=== PATIENT | female | born 1970 | race Caucasian/White ===

== ENCOUNTER 2020-01-06 09:53 | Outpatient (CLI) | payer BC, SELFPAY ==
--- NOTE | ~2020-01-06 | MM_ITS ---
EXAMINATION: MM screening [facility] BI w gael HISTORY: Screening mammogram TECHNIQUE: Craniocaudal and mediolateral oblique 3-D tomosynthesis images were obtained and synthetic 2-D images were generated. CAD analysis was submitted and interpreted. COMPARISON: No prior mammogram is available for comparison at this institution. BREAST PARENCHYMAL COMPOSITION: There are scattered areas of fibroglandular density. FINDINGS: There is no evidence of suspicious mass, calcification, or architectural distortion to sugg est malignancy in either breast. There has been no suspicious interval change. IMPRESSION: 1. No mammographic evidence of malignancy. 2. Recommend routine screening mammography in one year. BI-RADS Category 1: Negative.. Reviewed, dictated and finalized at location A.
== END 2020-01-06 09:54 | disposition home or self-care (01) ==
LOC: ANHIMG 09:55
PROVIDERS: PCP Internal Medicine; Visit Provider Obstetrics & Gynecology
DX: Z12.31 Encounter for screening mammogram for malignant neoplasm of breast (principal)
CPT/HCPCS: 77063; 77067

== ENCOUNTER → 2020-03-28 07:58 | Outpatient (CLI) | payer BC, SELFPAY ==
--- NOTE | ~2020-03-28 | MR_ITS ---
EXAMINATION: MR shoulder RT wo con DATE: 03/28/2020 08:37 INDICATION: Right shoulder pain TECHNIQUE: Magnetic resonance imaging (MRI) of the right shoulder was performed without intravenous c ontrast. Sequences included axial PD-weighted FS FSE, coronal oblique PD-weighted FS FSE, coronal obl ique T2-weighted FS FSE, sagittal PD-weighted FS FSE, and sagittal T1-weighted SE. COMPARISON: None. FINDINGS: Coracoacromial arch: The acromion undersurface is curved in morphology (type II). The coracoacromial ligament is normal. M oderate acromioclavicular osteoarthritis with primarily cephalad directed marginal osteophytes. Rotator cuff: There is moderate supraspinatus and infraspinatus tendinopathy without discrete tear. There is a glob ular region of low signal intensity extending along the anterior portion of the infraspinatus tendon and into the conjoined portion of the tendon with appearance suggestive of calcific tendinitis. Addit ional 5 x 3 mm region of likely calcific tendinitis at the insertion of the posterior most infraspina tus tendon. The region of likely calcification extends for approximately 2.7 cm in proximal to distal length along the tendon and measures up to 8 mm AP and 6 mm in thickness. Mild subscapularis tendino dawood. The teres minor tendon is normal. Normal rotator cuff muscle bulk and signal. Biceps tendon, glenoid labrum and glenohumeral cartilage: Long head of the biceps tendon is normal. Diffuse mild increased signal throughout the posterior supe rior glenoid labrum consistent with degeneration. Tiny focus of fluid signal consistent with delamina tion at the chondral labral junction at the 9:00 position of the posterior glenoid there is mild part ial thickness cartilage loss along the posterior glenoid with smooth chondral surface. Fluid: Small amount of fluid in the long head biceps tendon sheath which is disproportionate to the physiolo gic amount of fluid in the glenohumeral joint space consistent with mild bicipital tenosynovitis. No loose osteochondral bodies. Very small amount of fluid in the subacromial/subdeltoid bursa consistent with mild bursitis. Bones: Bone alignment is normal. No fracture or pathologic marrow replacing process. IMPRESSION: 1. Moderate supraspinatus and infraspinatus tendinopathy with likely calcific tendinitis along the in fraspinatus tendon. Could consider right shoulder radiographs for confirmation. 2. Mild glenohumeral osteoarthritis with small region of chondral labral delamination at the posterio r glenoid and degeneration along the posterosuperior labrum. 3. Moderate acromioclavicular osteoarthritis. 4. Mild subacromial/subdeltoid bursitis. 5. Mild bicipital tenosynovitis. Reviewed, dictated and finalized at location A. IMPRESSION: 1. Moderate supraspinatus and infraspinatus tendinopathy with likely calcific t endinitis along the infraspinatus tendon. Could consider right shoulder radiogr aphs for confirmation. 2. Mild glenohumeral osteoarthritis with small region of chondral labral [place] at the posterior glenoid and degeneration along the posterosuperior labr um. 3. Moderate acromioclavicular osteoarthritis. 4. Mild subacromial/subdeltoid bursitis. 5. Mild bicipital tenosynovitis.
== END ==
PROVIDERS: PCP Internal Medicine; Visit Provider Nurse Practitioner
DX: M25.511 Pain in right shoulder (principal); S46.011A Strain of muscle(s) and tendon(s) of the rotator cuff of right shoulder, initial encounter; M19.011 Primary osteoarthritis, right shoulder; M75.51 Bursitis of right shoulder; M75.21 Bicipital tendinitis, right shoulder
CPT/HCPCS: 73221

== ENCOUNTER 2021-03-09 15:03 | Outpatient (CLI) | payer BC, SELFPAY ==
--- NOTE | ~2021-03-09 | MM_ITS ---
EXAMINATION: MM screening [facility] BI w gael HISTORY: Screening mammogram TECHNIQUE: Craniocaudal and mediolateral oblique 3-D tomosynthesis images were obtained and synthetic 2-D images were generated. CAD analysis was submitted and interpreted. COMPARISON: 01/06/2020, 10/06/2018, 10/25/2016 BREAST PARENCHYMAL COMPOSITION: The breasts are heterogeneously dense, which may obscure small masses . FINDINGS: There is no evidence of suspicious mass, calcification, or architectural distortion to sugg est malignancy in either breast. There has been no suspicious interval change. IMPRESSION: 1. No mammographic evidence of malignancy. 2. Recommend routine screening mammography in one year. BI-RADS Category 1: Negative Reviewed, dictated and finalized at location A.
== END 2021-03-09 15:04 | disposition home or self-care (01) ==
LOC: ANHIMG 15:04
PROVIDERS: PCP Internal Medicine; Visit Provider Obstetrics & Gynecology
DX: Z12.31 Encounter for screening mammogram for malignant neoplasm of breast (principal)
CPT/HCPCS: 77063; 77067

== ENCOUNTER 2022-03-14 11:33 | Observation (INO) | payer OTHER, SELFPAY ==
[2022-03-14] VITALS (9 sets, daily range): BP systolic 120–148; BP diastolic 47–85; PULSE 71–111; RESP 15–18; TEMP 36.2–36.3; O2SAT 97–100; BMI 35.6
--- NOTE | ~2022-03-14 | XR_ITS ---
XR chest 2V DATE: 03/14/2022 15:43 INDICATION: Near syncope TECHNIQUE: PA and lateral views COMPARISON: 07/01/2008 PA chest FINDINGS: Normal heart size. No hilar or mediastinal enlargement. No pulmonary infiltrate or consolid ation, pleural effusion or pulmonary vascular congestion or pneumothorax. Degenerative disc disease in the lower cervical spine. Mild degenerative spurring of the thoracic spi ne. Status post cholecystectomy. IMPRESSION: No active cardiopulmonary disease Reviewed, dictated and finalized at location B.
--- NOTE | ~2022-03-14 | MR_ITS ---
EXAMINATION: MR brain/brain stem wo/w con DATE: 03/15/2022 08:11 INDICATION: Transient ischemic attack. Presyncope. TECHNIQUE: Magnetic resonance imaging (MRI) of the brain and brainstem was performed without and with 20 mL MultiHance intravenous contrast. COMPARISON: Head CT 03/14/2022 FINDINGS: There is an empty sella. 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 There are scattered areas of nonspecific increased T2-weighted signal intensity in the cerebral white evelyn er, which is within normal limits for the patient's age. There is no intracranial hemorrhage, acute i nfarction, or abnormal intracranial mass lesion. The ventricles are normal in size. There is mild muc osal thickening in the paranasal sinuses. The orbits are normal. The mastoid air cells are normal. IMPRESSION: 1. No acute intracranial pathology. Reviewed, dictated and finalized at location A.
--- NOTE | ~2022-03-14 | CT_ITS ---
EXAMINATION: CT brain wo con DATE: 03/14/2022 13:30 INDICATION: Syncope, lightheadedness, twitching and paresthesias to the tongue TECHNIQUE: Computed tomography (CT) of the head was performed without intravenous contrast. Sagittal and coronal reconstructions were performed. The mA was adjusted according to patient size. Iterative reconstruction technique was employed. The dose-length product was 605.33 mGy-cm. COMPARISON: 12/29/2004 FINDINGS: No acute intracranial hemorrhage, acute infarction or abnormal extra axial fluid collection. Ventricl es are normal and symmetric. There is an empty sella with the pituitary appearing flattening along the caudal aspect of the sella which can be seen with idiopathic intracranial hypertension. No mass/m ass effect. The orbits, paranasal sinuses and mastoid air cells are normal. IMPRESSION: 1. No acute intracranial process. 2. Empty sella which can be seen with idiopathic intracranial hypertension. Reviewed, dictated and finalized at location A.
--- NOTE | ~2022-03-14 | US_ITS ---
EXAMINATION: US carotid duplex BI DATE: 03/15/2022 11:58 INDICATION: Presyncope. Transient ischemic attack. TECHNIQUE: Grayscale, color Doppler, and pulsed Doppler images of the cervical carotid arteries were obtained. The degree of vessel stenosis is placed in one of the following categories: normal, <50%, 5 0-69%, >=70% but less than near-occlusion, near-occlusion, or total occlusion. Note that percent sten osis relative to normal distal artery lumen diameter is indirectly measured from velocity measurement s as described by Carlos, et al. Radiology 2003; 229:340-346. COMPARISON: None. FINDINGS: RIGHT: The right common carotid artery (CCA) peak systolic velocity (PSV) is 90 cm/s. The right internal car otid artery (ICA) PSV is 122 cm/s. The right ICA end-diastolic velocity (EDV) is 39 cm/s. The right I CA/CCA PSV ratio is 1.4. Grayscale and color Doppler images yield an estimate of <50% diameter reduct ion from plaque in the ICA. There is antegrade flow in the right vertebral artery. LEFT: The left CCA PSV is 82 cm/s. The left ICA PSV is 115 cm/s. The left ICA EDV is 43 cm/s. The left ICA/ CCA PSV ratio is 1.4. Grayscale and color Doppler images yield an estimate of <50% diameter reduction from plaque in the ICA. There is antegrade flow in the left vertebral artery. IMPRESSION: 1. <50% stenosis in the right internal carotid artery. 2. <50% stenosis in the left internal carotid artery. Reviewed, dictated and finalized at location A.
--- NOTE | 2022-03-14 12:03 | ECG_ITS ---
Measurements Intervals [place] Rate: 77 P: 68 FL: 136 QRS: 44 QRSD: 91 T: 56 QT: 360 QTc: 410 Interpretive Statements SINUS RHYTHM POSSIBLE LEFT ATRIAL ENLARGEMENT BASELINE ARTIFACT- I, II, III, AVR, AVL, AVF, V1 BORDERLINE ECG NO PREVIOUS ECG AVAILABLE FOR COMPARISON Electronically Signed On 03-14-2022 12:47:13 CDT by Maximino Bryan D.O.
[2022-03-14 12:42] LABS: Basophils Absolute Auto 0.1 K/mm3 (0.0-0.1); Basophils Percent Auto 0.7 % (0.2-1.2); Eosinophils Absolute Auto 0.2 K/mm3 (0-0.3); Hematocrit 43.4 % (37.0-47.0); Hemoglobin 14.2 g/dL (12.0-15.0); Immature Granulocyte Absolute 0.03 K/mm3 (0.00-0.031); Immature Granulocyte Percent A 0.3 % (0-0.5); Lymphocytes Absolute Auto 2.05 K/mm3 (0.9-3.2); Lymphocytes Percent Auto 21.5 % (18.3-44.2); Mean Corpuscular HGB Conc 32.7 g/dl (32-36); Mean Corpuscular Hemoglobin 29.4 pg (26-34); Mean Corpuscular Volume 89.9 fl (80-100); Mean Platelet Volume 8.9 fl (7.4-10.4); Monocytes Absolute Auto 0.7 K/mm3 (0.1-0.6); Monocytes Percent Auto 7.3 % (2.6-8.5); Neutrophils Absolute Auto 6.5 K/mm3 (1.3-6.7); Neutrophils Percent Auto 68.2 % (45.5-73.1); Platelet Count Result 303 k/mm3 (150-375); Red Blood Count 4.83 M/mm3 (4.2-5.4); Red Cell Distribution Width 12.6 % (11.5-14.5); White Blood Count 9.5 K/mm3 (4.5-10.0)
[2022-03-14 12:54] LABS: Alanine Aminotransferase 19 U/L (6-35); Albumin Level 4.7 g/dL (3.5-5.1); Alkaline Phosphatase 107 U/L (38-126); Anion Gap 12 mmol/L (8-16); Aspartate Amino Transferase 23 U/L (14-36); Bilirubin,Total 0.5 mg/dL (0.2-1.3); Blood Urea Nitrogen 12 mg/dL (7-17); Calcium 9.8 mg/dL (8.4-10.2); Carbon Dioxide 27 mmol/L (22-30); Chloride 99 mmol/L (98-107); Estimated CRCL calculation 114 ml/min; Estimated Glomerular Filt Rate > 60; Glucose 99 mg/dL (65-110); Potassium 4.3 mmol/L (3.4-5.0); Sodium 138 mmol/L (137-145)
--- NOTE | 2022-03-14 13:25 | ED.GENADULT ---
HPI - General Adult General Chief complaint: Unspecified Stated complaint: dizziness, nausea, tongue feels weird Time Seen by Provider: 03/14/22 12:51 History of Present Illness HPI narrative: 51-year-old female with history of aortic valve stenosis and bicuspid aortic valve presenting the emergency department for evaluation of near syncopal episode. Patient states last night she was sitting and resting when she had onset of lightheadedness last night. Patient states he also felt like her soft palate and tongue felt strangely. Patient states while she was at work she felt like she was going to pass out. This was short lasting but occurred 3 times while resting at work. Patient has no prior of heart attack but does have the history of aortic valve stenosis. Patient has had previous follow-up for Dr. Yao. Related Data Home Medications Medication Instructions Recorded Confirmed estradiol 1 mg tablet 1 mg PO DAILY 04/04/21 03/14/22 cetirizine 10 mg tablet 10 mg PO DAILY PRN Allergy Symptoms 07/02/21 03/14/22 [id number] 45 mg-folic See Rx Instructions .Route .COMPLEX 07/02/21 03/14/22 acid 800 mcg-vit K 120 mcg capsule (Bariatric Multivitamins) Zinc See Rx Instructions .Route .COMPLEX 11/07/21 03/14/22 calcium citrate 250 mg PO DAILY 11/07/21 03/14/22 Allergies Allergy/AdvReac Type Severity Reaction Status Date / Time No Known Allergies Allergy Verified 03/14/22 17:34 Review of Systems Review of Systems: CONSTITUTIONAL: Denies fever, chills, or sweats. EYES: Denies visual changes, redness, or discharge. ENT: Denies rhinorrhea, congestion, sore throat, or otalgia. CARDIOVASCULAR: See HPI RESPIRATORY: Denies cough or dyspnea. GASTROINTESTINAL: Denies abdominal pain, nausea, vomiting, or diarrhea. GENITOURINARY: Denies dysuria or hematuria. SKIN: Denies rash or itching. MUSCULOSKELETAL: Denies back pain, joint pain, or myalgia. NEUROLOGIC: Denies headache, numbness, or weakness. See HPI [facility] Past Medical History Medical History Acquired hypothyroidism Acromioclavicular joint arthritis Acute non-recurrent sinusitis Allergies Anxiety Calcific tendonitis of right shoulder Chicken pox Chronic headaches Depression Diarrhea Ear ache Eczema Elevated blood pressure reading GERD (gastroesophageal reflux disease) Heart murmur History of adverse reaction to anesthesia Hypothyroidism IBS (irritable bowel syndrome) Irritable bowel syndrome with diarrhea Left foot pain Migraine PCOS (polycystic ovarian syndrome) Seasonal allergies Shoulder impingement syndrome Ulcerative colitis Vision changes Surgical History Surgical History H/O bariatric surgery (~2012) H/O: hysterectomy (~2004) Hx of cholecystectomy (~2002) Hx of dilation and curettage (~1999) Hx of laparoscopy Hx of tonsillectomy (~1986) Family History Family History Grandparent Family history of osteoporosis Family history of chronic obstructive pulmonary disease Family history of congestive heart failure Mother Family history of osteoporosis Family history of hypothyroidism Sibling Hypertension Father Family history of elevated blood lipids Other Arthritis Cerebrovascular accident Heart disease Malignant neoplasm Social History Social History Social History: Patient drinks 1 cup of coffee per day. 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 HE
[2022-03-14 15:02] LABS: Magnesium 2.2 mg/dL (1.6-2.3)
--- NOTE | 2022-03-14 17:55 | PC.NURSE ---
This patient, Sanjana Carlos, was admitted to 3 [facility] Surg Room 319-01. Patient/family oriented to hospital policies and general routines including ID bracelet, bed and alarms, visiting hours, pain management, procedures, bathroom and other care routines, personal items, smoking policy, room service/diet, and visiting hours. Information on how to activate the Rapid Response Team has been discussed. Patient/Family are encouraged to report perceived risks to care and to ask questions if they do not understand what they are told or what they should do.
--- NOTE | 2022-03-14 22:03 | PM.IMHP ---
H&P: HPI History of Present Illness Date/Time: 03/14/22 22:03 Chief Complaint: Dizziness nausea and numbness and tingling to her tongue. Narrative: This is a 51-year-old female patient who has a history of aortic valve stenosis and bicuspid aortic valve stenosis. The patient came into the emergency room for complaints of near syncopal episode. The patient stated that she was at her air conditioned job today when she felt nauseated and lightheaded. She stated that her soft palate and tongue felt like they were numb and tingling. The patient is unsure of any COVID exposure. She has been vaccinated. The patient stated that she also has some numbness and tingling to both of her feet. Patient has had no prior myocardial infarction and gets an echo every year for her valve stenosis. The patient stated that there were 3 episodes at rest today when she felt like she was having near syncopal episodes. Labs are unremarkable. Chest x-ray shows no acute cardiopulmonary disease. Head CT was read as the following1. No acute intracranial process. 2. Empty sella which can be seen with idiopathic intracranial hypertension. The patient is being admitted to observation status on the date of service of 03/14/2022. Review of Systems Review of Systems: She HPI All systems reviewed & are unremarkable except as noted in HPI and below Constitutional: Constitutional: Reports as per HPI and Reports no additional constitutional complaints Eyes: Eyes: Reports as per HPI and Reports no additional eye complaints ENT: Reports system reviewed and no additional complaints, except as documented and Reports Normal hearing present Cardiovascular: Cardiovascular: Reports no additional cardiovascular complaints Respiratory: Respiratory: Reports no additional respiratory complaints and Reports no additional respiratory complaints Gastrointestinal: Gastrointestinal: Reports as per HPI and Reports no additional gastrointestinal complaints Musculoskeletal: Musculoskeletal: Reports no additional musculoskeletal complaints Integumentary/Breasts: Skin/Breast: Reports system reviewed and no additional complaints, except as docu and Reports as per HPI Neurologic: Reports system reviewed and no additional complaints, except as documented, Reports as per HPI and Reports Normal hearing present Psychiatric: Psychiatric: Reports no additional psychiatric complaints and Reports as per HPI Endocrine: Endocrine: Reports no additional endocrine complaints Hematologic/Lymphatic: Hematologic/Lymphatic: Reports no additional hematologic/lymphatic complaints Allergic/Immunologic: Allergic/Immunologic: Reports no additional allergic/immunologic complaints PMFSH Past Medical History Medical History Acquired hypothyroidism Acromioclavicular joint arthritis Acute non-recurrent sinusitis Allergies Anxiety Bronchitis Calcific tendonitis of right shoulder Chicken pox Chronic headaches Colon cancer screening Depression Diarrhea Ear ache Eczema Elevated blood pressure reading GERD (gastroesophageal reflux disease) Heart murmur History of adverse reaction to anesthesia Hypothyroidism IBS (irritable bowel syndrome) Irritable bowel syndrome with diarrhea Left foot pain Migraine PCOS (polycystic ovarian syndrome) Right shoulder pain Screening for endocrine disorder Screening for lipid disorders Seasonal allergies Shoulder impingement syndrome Shoulder pain Vision changes Surgical History Surgical History H/O bariatric surgery (~2012) H/O: hysterectomy (~2004) Hx of cholecystectomy (~2002) Hx of dilation and curettage (~1999) Hx of laparoscopy Hx of tonsillectomy (~1986) Family History Family History Grandparent Family history of osteoporosis Family history of chronic obstructive pulmonary disease Family
[2022-03-15] VITALS (7 sets, daily range): BP systolic 120–133; BP diastolic 65–69; PULSE 67–87; RESP 16–18; TEMP 36.6–37.2; O2SAT 96–99
--- NOTE | 2022-03-15 | ECHO_ITS ---
Patient Info Name: Sanjana Carlos Age: 51 years : 1970 Gender: Female Ht: 66 in Wt: 220 lbs BSA: 2.20 m2 HR: 79 bpm BP: 120 / 65 mmHg Heart Rhythm: Sinus Rhythm Exam Date: 03/15/2022 9:14 AM Exam Location: [facility] Patient Status: Inpatient Admit Date: 03/14/2022 Staff Ordering Physician: Amy Schuster NP Chemical Engineering Professor: Nicanor Solares RDCS, RT Attending Provider: Roxana Cash DO Referring Physician: Mariely LEE; Exam Type: CA echo dop bubble study w con Study Info Indications R42 - Dizziness and giddiness Complete two-dimentional, color flow and Doppler transthoracic echocardiogram is performed with agitated saline and with contrast to opacify the left ventricle and to improve the delineation of the left ventricle endocardial borders. Summary 1. Left ventricular chamber dimension is normal. 2. Left ventricular systolic function is normal, estimated at 60-65%. 3. The left ventricular diastolic function is grade I diastolic dysfunction. 4. Mild aortic valve stenosis, suspect bicuspid valve. Left Ventricle Left ventricular chamber dimension is normal. Left ventricular systolic function is normal, estimated at 60-65%. The left ventricular diastolic function is grade I diastolic dysfunction. Right Ventricle Right ventricular chamber dimension is normal. Left Atria Left atrial chamber dimension is normal. Right Atria Right atrial chamber dimension is normal. Aortic Valve The aortic valve is bicuspid. There is mild aortic valve stenosis with a peak velocity of 192 cm/s, mean gradient of 8 mmHg, and aortic valve area of 2.0 cm2. There is no aortic valve regurgitation. Pulmonic Valve The pulmonic valve is not well visualized. Mitral Valve The mitral valve has normal leaflets. Tricuspid Valve The tricuspid valve leaflets are normal. Pericardium/Pleural The pericardium appears normal. Aorta The aortic root size at the sinus of Valsalva is normal. Left Ventricular Outflow Tract Name Value Normal LVOT 2D LVOT Diameter 2.0 cm LVOT Doppler LVOT Peak Gradient 5 mmHg LVOT Mean Gradient 2 mmHg LVOT VTI 19 cm LVOT VTI/AV VTI Ratio 0.6 LVOT Stroke Volume 63 ml LVOT CO 5.9 l/min LVOT CI 2.7 l/min/m2 Mitral Valve Name Value Normal MV Doppler MV Decel Craven 292 cm/s2 MV PHT 59 ms MV Area (PHT) 3.8 cm2 4.0-5.0 MV Diastolic Function MV E Peak Velocity 59 cm/s MV A Peak Velocity 91 cm/s
[2022-03-15] MEDS: LEVOTHYROXINE SODIUM 125 MCG TABLET PO (05:35)
[2022-03-15 06:23] LABS: SARS-CoV-2 RNA PCR Negative
[2022-03-15 06:45] LABS: Basophils Absolute Auto 0.1 K/mm3 (0.0-0.1); Eosinophils Absolute Auto 0.3 K/mm3 (0-0.3); Eosinophils Percent Auto 4.5 % (0-4.4); Hematocrit 40.5 % (37.0-47.0); Hemoglobin 13.3 g/dL (12.0-15.0); Immature Granulocyte Absolute 0.02 K/mm3 (0.00-0.031); Immature Granulocyte Percent A 0.3 % (0-0.5); Lymphocytes Absolute Auto 1.85 K/mm3 (0.9-3.2); Lymphocytes Percent Auto 25.2 % (18.3-44.2); Mean Corpuscular HGB Conc 32.8 g/dl (32-36); Mean Corpuscular Hemoglobin 29.4 pg (26-34); Mean Corpuscular Volume 89.6 fl (80-100); Mean Platelet Volume 8.8 fl (7.4-10.4); Monocytes Absolute Auto 0.7 K/mm3 (0.1-0.6); Monocytes Percent Auto 10.1 % (2.6-8.5); Neutrophils Absolute Auto 4.3 K/mm3 (1.3-6.7); Neutrophils Percent Auto 58.9 % (45.5-73.1); Platelet Count Result 266 k/mm3 (150-375); Red Blood Count 4.52 M/mm3 (4.2-5.4); Red Cell Distribution Width 12.7 % (11.5-14.5); White Blood Count 7.3 K/mm3 (4.5-10.0)
[2022-03-15 07:01] LABS: Lactic Acid Reflex 1.6 mmol/L (0.7-2.0)
[2022-03-15 07:06] LABS: Alanine Aminotransferase 17 U/L (6-35); Alkaline Phosphatase 86 U/L (38-126); Anion Gap 8 mmol/L (8-16); Aspartate Amino Transferase 26 U/L (14-36); Bilirubin,Total 0.5 mg/dL (0.2-1.3); Blood Urea Nitrogen 13 mg/dL (7-17); Calcium 8.7 mg/dL (8.4-10.2); Carbon Dioxide 25 mmol/L (22-30); Chloride 103 mmol/L (98-107); Estimated CRCL calculation 114 ml/min; Estimated Glomerular Filt Rate > 60; Glucose 99 mg/dL (65-110); Potassium 3.9 mmol/L (3.4-5.0); Sodium 136 mmol/L (137-145)
[2022-03-15 08:09] LABS: Folic Acid > 20.0 ng/mL (2.76->20)
--- NOTE | 2022-03-15 08:19 | PM.IMPN ---
Progress Note: A&P Assessment and Plan (1) Near syncope: Code(s): R55 - Syncope and collapse Status: Acute Assessment and Plan: Echo pending Follow-up cardiology consultation, pending (2) Brain TIA: Code(s): G45.9 - Transient cerebral ischemic attack, unspecified Status: Acute Assessment and Plan: Appreciate neurology consultation CTA head and neck was echo pending he (3) Dizziness: Code(s): R42 - Dizziness and giddiness Status: Acute Assessment and Plan: Muscle relaxer and spironolactone both being held (4) Depression: Code(s): F32.A - Depression, unspecified Status: Acute Assessment and Plan: Continue Effexor (5) H/O bariatric surgery: Onset Date: ~2012 Code(s): Z98.84 - Bariatric surgery status Status: Acute Assessment and Plan: Continue home supplements (6) Anxiety: Code(s): F41.9 - Anxiety disorder, unspecified Status: Acute Assessment and Plan: Continue Effexor (7) Hypothyroidism: Qualifiers: Hypothyroidism type: unspecified Qualified Code(s): E03.9 - Hypothyroidism, unspecified Code(s): E03.9 - Hypothyroidism, unspecified Status: Acute Assessment and Plan: Continue home levothyroxine, TSH within normal limits (8) IBS (irritable bowel syndrome): Code(s): K58.9 - Irritable bowel syndrome without diarrhea Status: Acute Assessment and Plan: Stable Plan DVT prophylaxis with SCDs GI prophylaxis not indicated Code status full code Subjective Date/time seen: 03/15/22 08:19 Interval history: No overnight events noted. No chest pain or shortness of breath. No nausea, vomiting or diarrhea. No fevers or chills. Review of Systems Review of Systems: 12 point review of systems was assessed and was negative except as noted in the HPI Exam Narrative: General: No acute distress, alert and oriented per baseline HEENT: Atraumatic, normocephalic, mucous membranes moist CV: Regular rate and rhythm, S1, S2 Lungs: Clear to auscultation bilaterally, no rales or crackles noted, no wheezes, good air entry Abdomen: Soft, nontender, nondistended Extremities: Normal to inspection Skin: No rashes noted, no lesions or wounds seen Psych: Euthymic, normal affect Objective Data Vital Signs Vital Signs: Vital Signs - 24 hr 03/14/22 12:00 03/14/22 12:59 03/14/22 13:00 Temperature 97.3 F L Pulse Rate 79 74 Respiratory Rate 18 15 Blood Pressure 148/71 H Pulse Oximetry 99 97 100 Oxygen Delivery Room Air 03/14/22 13:01 03/14/22 18:05 03/14/22 18:00 Temperature 97.2 F L Pulse Rate 71 74 Respiratory Rate 17 16 Blood Pressure 132/85 144/70 H Pulse Oximetry 100 98 Oxygen Delivery Room Air 03/14/22 20:00 03/14/22 22:02 03/14/22 22:02 Temperature 97.3 F L Pulse Rate 111 H 81 Respiratory Rate 18 Blood Pressure 120/47 L 120/47 L Pulse Oximetry 97 Oxygen Delivery 03/14/22 22:06 03/14/22 22:08 03/15/22 00:00 Temperature Pulse Rate 75 Respiratory Rate Blood Pressure 142/74 H 134/70 Pulse Oximetry Oxygen Delivery 03/15/22 04:00 03/15/22 06:00 Temperature 99 F Pulse Rate 67 72 Respiratory Rate 16 Blood Pressure 120/65 Pulse Oximetry 99 Oxygen Delivery Intake/Output Intake/Output: Intake & Output 03/12/22 03/13/22 03/14/22 03/15/22 23:59 23:59 23:59 23:59 Intake Total 120 Balance 120 Meds/Results Medications: Active Medications Generic Name Dose Route Start Last Admin Trade Name Alexandroq PRN Reason Stop Dose Admin Estradiol 1 mg 03/15/22 09:00 Estradiol 1 Mg Tablet PO DAILY [facility] Levothyroxine Sodium 125 mcg 03/15/22 06:30 03/15/22 05:35 Levothyroxine Sodium 125 Mcg Tablet PO 125 mcg DAILY@0630 [facility] Administration Meclizine HCl 25 mg 03/15/22 09:00 Meclizine Hcl 25 Mg Tablet PO QAM [facility] Miscellaneous In
[2022-03-15] MEDS: PERFLUTREN LIPID MICROSPHERES 1.5 ML VIAL DILUTED TO 10 ML TOTAL VOLUME IV PUSH (09:33)
--- NOTE | 2022-03-15 09:33 | IVDEFINITY ---
Prior to administration of IV Definity the patient was educated on the risks and benefits of the imaging enhancing agent including potential adverse side effects. The patient verbalized understanding. Allergies were verified. No exclusion criteria were identified and at least one of the following inclusion criteria were met: 1) physician request, 2) patient technically difficult to image (per the [place] [employer] guidelines of two or more segments not discernable within the apical view), or 3) questionable left ventricular function. ?
[2022-03-15] MEDS: PANTOPRAZOLE 40 MG TABLET PO (09:54)
[2022-03-15] MEDS: MECLIZINE HCL 25 MG TABLET PO (09:54)
[2022-03-15] MEDS: VENLAFAXINE HCL XR 75 MG CAP.ER.24H 150 MG PO (09:54)
[2022-03-15] MEDS: estradioL 1 MG TABLET PO (09:54)
--- NOTE | 2022-03-15 10:33 | WPDNEURCNPN ---
Assessment and Plan Assessment and plan (1) Near syncope: Code(s): R55 - Syncope and collapse Status: Acute Assessment and Plan: Sanjana Carlos is a 51 year old female with a history of aortic valve stenosis, hypothyroidism, anxiety who presented yesterday due to multiple presyncopal episodes. MRI brain negative for stroke. Vessel imaging pending -- need to rule out carotid and vertebrobasilar disease. Could be orthostatic hypotension vs vasovagal vs cardiogenic. - Recommend CTA head and neck and surface echo Consult date: 03/15/22 Reason for consult: Presyncopal episodes HPI: Sanjana Carlos is a 51 year old female with a history of aortic valve stenosis, hypothyroidism, anxiety who presented yesterday due to multiple episodes of lightheadedness. She had sudden lightheadedness while she was sitting down. She does not feel that there is a positional component to her lightheadedness. She denies any heart racing, chest pain, or palpitations. She also felt a strange sensation in her soft palate and tongue. While she was at work she felt like she was going to faint. In total she had three episodes where she felt lightheaded. She did not loose consciousness. She came to [facility] where she had a CT head which was negative. EKG showed sinus rhythm. Basic labs were unremarkable. She had an MRI brain this morning that was normal. She feels back to her baseline. She denies any headache, vision changes, bulbar issues, speech issues, change in tongue sensation, focal weakness or numbness. Patient does endorse a lot of stress in her personal life lately. Her home medications include Effexor, Flexeril, spironolactone, estradiol. Review of Systems Constitutional: Constitutional: Reports no additional constitutional complaints Eyes: Eyes: Reports no additional eye complaints ENT: Reports Normal hearing present Cardiovascular: Cardiovascular: Reports no additional cardiovascular complaints Respiratory: Respiratory: Reports no additional respiratory complaints Gastrointestinal: Gastrointestinal: Reports no additional gastrointestinal complaints Genitourinary: Genitourinary: Reports no additional female genitourinary complaints Musculoskeletal: Musculoskeletal: Reports no additional musculoskeletal complaints Integumentary/Breasts: Skin/Breast: Reports system reviewed and no additional complaints, except as docu Neurologic: Reports as per HPI Psychiatric: Psychiatric: Reports anxiety PMFSH Past Medical History Medical History Acquired hypothyroidism Acromioclavicular joint arthritis Acute non-recurrent sinusitis Allergies Anxiety Bronchitis Calcific tendonitis of right shoulder Chicken pox Chronic headaches Colon cancer screening Depression Diarrhea Ear ache Eczema Elevated blood pressure reading GERD (gastroesophageal reflux disease) Heart murmur History of adverse reaction to anesthesia Hypothyroidism IBS (irritable bowel syndrome) Irritable bowel syndrome with diarrhea Left foot pain Migraine PCOS (polycystic ovarian syndrome) Right shoulder pain Screening for endocrine disorder Screening for lipid disorders Seasonal allergies Shoulder impingement syndrome Shoulder pain Vision changes Surgical History Surgical History H/O bariatric surgery (~2012) H/O: hysterectomy (~2004) Hx of cholecystectomy (~2002) Hx of dilation and curettage (~1999) Hx of laparoscopy Hx of tonsillectomy (~1986) Family History Family History Grandparent Family history of osteoporosis Family history of chronic obstructive pulmonary disease Family history of congestive heart failure Mother Family history of osteoporosis Family history of hypothyroidism Sibling Hypertension Father Family history of elevated blood lipids Other Arthritis Cerebrovascular accid
--- NOTE | 2022-03-15 15:13 | PM.CNCAR ---
Assessment and Plan Assessment and plan (1) Near syncope: Code(s): R55 - Syncope and collapse Status: Acute Plan This is a 51-year-old lady who has likely bicuspid aortic valve and a very mild stenosis on physical exam and by echo. It is highly unlikely therefore that her aortic valve disease has anything to do with yesterday's symptomatology. Follow-up in our office is already arranged as mentioned above with Dr. Voss. I do not think she needs any additional cardiac workup at this time Bossman Craig MD [facility] History of Present Illness History of Present Illness Consult date/time: 03/15/22 15:13 Reason For Visit: near syncope Narrative: This is a 51-year-old woman who is unknown to me prior to this consultation. I am seeing her at the request of the hospitalist because of an episode of near syncope that she experienced yesterday while she was at work. 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 She did not lose consciousness at that was associated with a sense of some nausea but no other cardiac symptomatology. She has never had a yael syncopal episode. She does not report any symptoms that are going on with exertion or activity she does not specifically experience any exertional chest pain shortness of breath. She feels well at this time and denies any complaints. She was brought to the emergency room at the wrist insistence of 1 of her family members because she is known to have some aortic valve disease and follows with my partner, Dr. Yao. The patient follows with my partner because of aortic valve stenosis. She has been seen for several years in the office and carries the diagnosis of suspected bicuspid aortic valve very mild stenosis. She has had no symptoms of this and has been followed annually in the office. As it happens her annual appointment is due next month. An echocardiogram was ordered in this hospital by the hospitalists which is dictated separately. She has normal left ventricular systolic function and still very mild aortic still stenosis. Calculated valve area is 2.0 cm2 with a modest transvalvular gradient. The patient is obese and so the technical quality of the images is certainly not ideal but I would agree with the comment that this is the likely or at least suspicious for a bicuspid valve. Aortic root dimension is normal. There is no aortic regurgitation. Review of Systems Constitutional: Constitutional: Reports no additional constitutional complaints Eyes: Eyes: Reports no additional eye complaints ENT: Reports system reviewed and no additional complaints, except as documented Cardiovascular: Cardiovascular: Reports as per HPI Respiratory: Respiratory: Reports no additional respiratory complaints Gastrointestinal: Gastrointestinal: Reports no additional gastrointestinal complaints Musculoskeletal: Musculoskeletal: Reports no additional musculoskeletal complaints Integumentary/Breasts: Skin/Breast: Reports system reviewed and no additional complaints, except as docu Neurologic: Reports as per HPI Endocrine: Endocrine: Reports no additional endocrine complaints Hematologic/Lymphatic: Hematologic/Lymphatic: Reports no additional hematologic/lymphatic complaints Allergic/Immunologic: Allergic/Immunologic: Reports no additional allergic/immunologic complaints PMFSH Past Medical History Medical History Acquired hypothyroidism Acromioclavicular joint arthritis Acute non-recurrent sinusitis Allergies Anxiety Bronchitis Calcific tendonitis of right shoulder Chicken pox Chronic headaches Colon cancer screening Depression Diarrhea Ear ache Eczema Elevated blood pressure reading GERD (gastroesophageal reflux disease) Heart murmur History of adverse r
[2022-03-15] MEDS: MULTIVITAMINS /C LUTEIN (CENTRUM SILVER) TABLET *BKC 1 TAB BY MOUTH (16:55)
--- NOTE | 2022-03-15 17:07 | PC.NURSE ---
Called Dr. Cash to question discharge per patient request. Read cardiology consultation report to MD. Verbal discharge orders received.
--- NOTE | 2022-03-16 07:29 | PM.DS ---
DS: Admitting Diagnosis Discharge Date 03/15/22 Admitting Diagnosis Pre syncopal episodes DS: Discharge Diagnosis Discharge Diagnosis (1) Near syncope: Code(s): R55 - Syncope and collapse Status: Acute Assessment and Plan: Echo pending Follow-up cardiology consultation, pending (2) Brain TIA: Code(s): G45.9 - Transient cerebral ischemic attack, unspecified Status: Acute Assessment and Plan: Appreciate neurology consultation CTA head and neck was echo pending he (3) Dizziness: Code(s): R42 - Dizziness and giddiness Status: Acute Assessment and Plan: Muscle relaxer and spironolactone both being held (4) Depression: Code(s): F32.A - Depression, unspecified Status: Acute Assessment and Plan: Continue Effexor (5) H/O bariatric surgery: Onset Date: Code(s): Z98.84 - Bariatric surgery status Status: Acute Assessment and Plan: Continue home supplements (6) Anxiety: Code(s): F41.9 - Anxiety disorder, unspecified Status: Acute Assessment and Plan: Continue Effexor (7) Hypothyroidism: Qualifiers: Hypothyroidism type: unspecified Qualified Code(s): E03.9 - Hypothyroidism, unspecified Code(s): E03.9 - Hypothyroidism, unspecified Status: Acute Assessment and Plan: Continue home levothyroxine, TSH within normal limits (8) IBS (irritable bowel syndrome): Code(s): K58.9 - Irritable bowel syndrome without diarrhea Status: Acute Assessment and Plan: Stable Plan DVT prophylaxis with SCDs GI prophylaxis not indicated Code status full code DS: Summary Hospital Course Hospital Course: 51-year-old female patient who has a history of aortic valve stenosis and bicuspid aortic valve stenosis.? The patient came into the emergency room for complaints of near syncopal episode.? The patient stated that she was at her air conditioned job today when she felt nauseated and lightheaded.? She stated that her soft palate and tongue felt like they were numb and tingling.? The patient is unsure of any COVID exposure.? She has been vaccinated.? The patient stated that she also has some numbness and tingling to both of her feet.? Patient has had no prior myocardial infarction and gets an echo every year for her valve stenosis.? The patient stated that there were 3 episodes at rest today when she felt like she was having near syncopal episodes.? Labs are unremarkable.? Chest x-ray shows no acute cardiopulmonary disease.? Head CT was read as the following1. No acute intracranial process. 2. Empty sella which can be seen with idiopathic intracranial hypertension.? Neurology and Cardiology were both consulted. Neurology recommended CTA head and neck as well as echo. Patient was unable to take contrast, so carotid ultrasound was ordered showing less than 50% stenosis of bilateral internal carotid arteries. Echo was ordered. Echo report showed: ? 1. Left ventricular chamber dimension is normal. ? 2. Left ventricular systolic function is normal, estimated at 60-65%. ? 3. The left ventricular diastolic function is grade I diastolic dysfunction. ? 4. Mild aortic valve stenosis, suspect bicuspid valve. Cardiology and Neurology both were okay to discharge her with outpatient follow-up for further care. Patient had no recurrence of her symptoms. Uncertain etiology to the symptoms, thought to be secondary to significant social stressors lately combined with dehydration. Time Spent with Patient Time attestation: Total time spent providing and/or coordinating discharge services: Exam Narrative: General: No acute distress, alert and oriented per baseline HEENT: Atraumatic, normocephalic, mucous membranes moist CV: Regular rate and rhythm, S1, S2 Lungs: Clear to auscultation bilaterally, no rales or crackles noted, no wheezes, good air entry Abdomen: Soft, nontender, nond
[2022-03-20 09:36] LABS: Methylmalonic Acid 99 nmol/L (87-318)
== END 2022-03-15 17:49 | disposition home or self-care (01) ==
LOC: ANHED 17:06 → ANH3MEDSUR 17:25
PROVIDERS: Nurse Practitioner; Admitting Provider Student in an Organized Health Care Education/Training Program; Emergency Provider Emergency Medicine; PCP Emergency Medicine; Visit Provider Student in an Organized Health Care Education/Training Program
DX: G45.9 Transient cerebral ischemic attack, unspecified (principal); R55 Syncope and collapse; Q23.1 Congenital insufficiency of aortic valve; R11.0 Nausea; E03.9 Hypothyroidism, unspecified; F41.9 Anxiety disorder, unspecified; R51.9 Headache, unspecified; M19.019 Primary osteoarthritis, unspecified shoulder; F32.A Depression, unspecified; K21.9 Gastro-esophageal reflux disease without esophagitis; R01.1 Cardiac murmur, unspecified; E28.2 Polycystic ovarian syndrome; E23.6 Other disorders of pituitary gland; Z20.822 Contact with and (suspected) exposure to COVID-19; J30.2 Other seasonal allergic rhinitis; K51.90 Ulcerative colitis, unspecified, without complications; M75.40 Impingement syndrome of unspecified shoulder; Z98.84 Bariatric surgery status; Z87.891 Personal history of nicotine dependence; Z79.890 Hormone replacement therapy; Z79.899 Other long term (current) drug therapy; Z83.6 Family history of other diseases of the respiratory system; Z82.3 Family history of stroke; Z82.49 Family history of ischemic heart disease and other diseases of the circulatory system; Z84.89 Family history of other specified conditions
CPT/HCPCS: 36415; 70450; 70553; 71046; 80053; 82607; 82728; 82746; 83605; 83735; 83921; 84443; 85025; 93005; 93880; 96374; 96375; 99285; A9270; A9577; C8929; C9803; G0378; Q9957; U0003; U0005

== ENCOUNTER 2022-06-18 17:03 | Outpatient (CLI) | payer OTHER, SELFPAY ==
--- NOTE | ~2022-06-18 | MM_ITS ---
EXAMINATION: MM screening [facility] BI w gael HISTORY: Screening mammogram TECHNIQUE: Craniocaudal and mediolateral oblique 3-D tomosynthesis images were obtained and synthetic 2-D images were generated. CAD analysis was submitted and interpreted. COMPARISON: 03/09/2021, 01/06/2020, 10/06/2018 BREAST PARENCHYMAL COMPOSITION: The breasts are heterogeneously dense, which may obscure small masses . FINDINGS: No suspicious mass, calcification, or architectural distortion are identified in either alejandro ast to suggest malignancy. There has been no suspicious interval change. IMPRESSION: 1. No mammographic evidence of malignancy. 2. Recommend routine screening mammography in one year. BI-RADS Category 1: Negative Reviewed, dictated and finalized at location A. T [employer]
== END 2022-06-18 17:04 | disposition home or self-care (01) ==
LOC: ANHIMG 17:05
PROVIDERS: PCP Emergency Medicine; Visit Provider Obstetrics & Gynecology
DX: Z12.31 Encounter for screening mammogram for malignant neoplasm of breast (principal)
CPT/HCPCS: 77063; 77067

== ENCOUNTER 2022-09-23 01:14 | Day surgery (SDC) | payer OTHER, SELFPAY ==
[2022-09-12 12:35] VITALS: BMI 38.7
[2022-09-23 09:37] VITALS: BP 135/79; PULSE 75; RESP 18; TEMP 36.2; O2SAT 99; BMI 39.2
[2022-09-23] MEDS: LACTATED RINGERS 1,000 ML 150 ML IV CONT (09:44)
--- NOTE | 2022-09-23 09:55 | WPDANESEPPF ---
Anes - Initial Pre Proc Eval Procedure: Operation Date: 09/23/22 11:00 Proposed Procedures p Screening Colonoscopy - Manjit Banks MD Date/Time: 09/23/22 09:55 Surgeon: Manjit Banks MD Pre Op Diagnosis: neoplasm screening Patient Data Age: 51 Gender: F Height: 1.68 m Weight: 110.2 kg Last Vital Signs Temp 36.2 C L 09/23/22 09:37 Pulse 75 09/23/22 09:37 Resp 18 09/23/22 09:37 BP 135/79 09/23/22 09:37 Pulse Ox 99 09/23/22 09:37 O2 Del Method Room Air 09/23/22 09:37 Allergies Allergy/AdvReac Type Severity Reaction Status Date / Time No Known Allergies Allergy Verified 09/23/22 09:36 Home Medications Medication Instructions Recorded Confirmed Type estradiol 1 mg tablet 1 mg PO DAILY 04/04/21 09/23/22 History cetirizine 10 mg tablet 10 mg PO DAILY PRN Allergy Symptoms 07/02/21 09/23/22 History [id number] 45 mg-folic See Rx Instructions .Route .COMPLEX 07/02/21 09/23/22 History acid 800 mcg-vit K 120 mcg capsule (Bariatric Multivitamins) Zinc See Rx Instructions .Route .COMPLEX 11/07/21 09/23/22 History calcium citrate 250 mg PO DAILY 11/07/21 09/23/22 History spironolactone 50 mg tablet 50 mg PO DAILY #90 tabs 06/11/22 09/23/22 Rx venlafaxine 150 mg 150 mg PO DAILY #90 caps 06/11/22 09/23/22 Rx capsule,extended release 24 hr omeprazole 20 mg capsule,delayed 20 mg PO DAILY #30 caps 06/14/22 09/23/22 Rx release celecoxib 200 mg capsule (Celebrex) 200 mg PO DAILY #90 caps 06/19/22 09/23/22 Rx levothyroxine 125 mcg tablet 125 mcg PO DAILY #90 tabs 06/19/22 09/23/22 Rx (Synthroid) semaglutide (weight loss) 0.25 0.25 mg (0.5 mL) subcut WEEKLY #2 08/20/22 09/23/22 Rx mg/0.5 mL subcutaneous pen mL injector (BonnieBarBirdclaudia) Patient hx anesthesia problems: none Family hx anesthesia problems: none Results Review: All pre-operative results and documents have been reviewed as part of the pre-operative evaluation. [facility] Past Medical History Medical History Acquired hypothyroidism Acromioclavicular joint arthritis Acute non-recurrent sinusitis Allergies Anxiety Bronchitis Calcific tendonitis of right shoulder Chicken pox Chronic headaches Colon cancer screening Depression Diarrhea Ear ache Eczema Elevated blood pressure reading GERD (gastroesophageal reflux disease) Heart murmur History of adverse reaction to anesthesia Hypothyroidism IBS (irritable bowel syndrome) Irritable bowel syndrome with diarrhea Left foot pain Migraine PCOS (polycystic ovarian syndrome) Right shoulder pain Screening for endocrine disorder Screening for lipid disorders Seasonal allergies Shoulder impingement syndrome Shoulder pain Vision changes Surgical History Surgical History H/O bariatric surgery (~2012) H/O: hysterectomy (~2004) Hx of cholecystectomy (~2002) Hx of dilation and curettage (~1999) Hx of laparoscopy Hx of tonsillectomy (~1986) Family History Family History Grandparent Family history of osteoporosis Family history of chronic obstructive pulmonary disease Family history of congestive heart failure Mother Family history of osteoporosis Family history of hypothyroidism Sibling Hypertension Father Family history of elevated blood lipids Other Arthritis Cerebrovascular accident Heart disease Malignant neoplasm Social History Social History Social History: Patient drinks 1 cup of coffee per day. The patient is and has 2 children. Her daughter is her durable power correctional agency director for healthcare. The patient rarely drinks alcohol. She is a former smoker. 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 Code status full code Smoking packs per day: 1 Smoking cigarettes per day: 20.0 Years smoked: 20
--- NOTE | 2022-09-23 10:46 | PM.HPGS ---
History of Present Illness History of Present Illness Consent: Risks, benefits, and alternatives have been discussed and questions answered. Patient agrees to proceed with procedure. Chief complaint: neoplasm screening Narrative: Sanjana Carlos is a 51 year old female here for screening colonoscopy, last one 5 years ago Review of Systems Constitutional: Constitutional: Denies headache(s) and Denies weakness Eyes: Eyes: Denies blurry vision ENT: Reports Normal hearing present, Denies headache(s) and Denies neck pain Cardiovascular: Cardiovascular: Denies chest pain and Denies dyspnea Respiratory: Respiratory: Denies dyspnea Gastrointestinal: Gastrointestinal: Reports no additional gastrointestinal complaints Genitourinary: Genitourinary: Denies dysuria Musculoskeletal: Musculoskeletal: Denies neck pain Integumentary/Breasts: Skin/Breast: Denies dry skin Neurologic: Reports Normal hearing present, Denies headache(s) and Denies weakness Psychiatric: Psychiatric: Denies anxiety Endocrine: Endocrine: Denies change in body appearance Hematologic/Lymphatic: Hematologic/Lymphatic: Denies easy bleeding Allergic/Immunologic: Allergic/Immunologic: Denies urticaria PMFSH Past Medical History Medical History Acquired hypothyroidism Acromioclavicular joint arthritis Acute non-recurrent sinusitis Allergies Anxiety Bronchitis Calcific tendonitis of right shoulder Chicken pox Chronic headaches Colon cancer screening Depression Diarrhea Ear ache Eczema Elevated blood pressure reading GERD (gastroesophageal reflux disease) Heart murmur History of adverse reaction to anesthesia Hypothyroidism IBS (irritable bowel syndrome) Irritable bowel syndrome with diarrhea Left foot pain Migraine PCOS (polycystic ovarian syndrome) Right shoulder pain Screening for endocrine disorder Screening for lipid disorders Seasonal allergies Shoulder impingement syndrome Shoulder pain Vision changes Surgical History Surgical History H/O bariatric surgery (~2012) H/O: hysterectomy (~2004) Hx of cholecystectomy (~2002) Hx of dilation and curettage (~1999) Hx of laparoscopy Hx of tonsillectomy (~1986) Family History Family History Grandparent Family history of osteoporosis Family history of chronic obstructive pulmonary disease Family history of congestive heart failure Mother Family history of osteoporosis Family history of hypothyroidism Sibling Hypertension Father Family history of elevated blood lipids Other Arthritis Cerebrovascular accident Heart disease Malignant neoplasm Social History Social History Social History: Patient drinks 1 cup of coffee per day. The patient is and has 2 children. Her daughter is her durable power travel sales consultant for healthcare. The patient rarely drinks alcohol. She is a former smoker. 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
[2022-09-23 11:05] VITALS: BP 128/71; PULSE 71; RESP 26; O2SAT 100
[2022-09-23 11:15] VITALS: BP 122/73; PULSE 80; RESP 17; O2SAT 100
[2022-09-23 11:25] VITALS: BP 142/80; PULSE 75; RESP 21; O2SAT 100
== END 2022-09-23 11:30 | disposition home or self-care (01) ==
PROVIDERS: PCP Emergency Medicine; Visit Provider Internal Medicine Gastroenterology
PROC: 0DJD8ZZ Inspection of Lower Intestinal Tract, Via Natural or Artificial Opening Endoscopic (ICD-10-PCS; CPT 45378; principal; 2022-09-23 11:00)
DX: Z12.11 Encounter for screening for malignant neoplasm of colon (principal); K21.9 Gastro-esophageal reflux disease without esophagitis; K58.0 Irritable bowel syndrome with diarrhea; E28.2 Polycystic ovarian syndrome; E03.9 Hypothyroidism, unspecified; M75.40 Impingement syndrome of unspecified shoulder; F41.9 Anxiety disorder, unspecified; F32.A Depression, unspecified; Z87.891 Personal history of nicotine dependence; Z98.84 Bariatric surgery status
CPT/HCPCS: 45378; J2704; J7120

== ENCOUNTER 2023-12-09 16:57 | Outpatient (CLI) | payer OTHER, SELFPAY ==
--- NOTE | ~2023-12-09 | MM_ITS ---
EXAMINATION: MM screening [facility] BI w gael HISTORY: Screening TECHNIQUE: Craniocaudal and mediolateral oblique 3-D tomosynthesis images were obtained and synthetic 2-D images were generated. CAD analysis was submitted and interpreted. COMPARISON: Comparison to multiple prior studies sequentially, with oldest reviewed study dated 02/04. BREAST PARENCHYMAL COMPOSITION: Dense: The breasts are heterogeneously dense, which may obscure small masses FINDINGS: There is no evidence of suspicious mass, calcification, or architectural distortion to sugg est malignancy in either breast. There has been no suspicious interval change. IMPRESSION: 1. No mammographic evidence of malignancy. 2. Recommend routine screening mammography in one year. BI-RADS Category 1: Negative Reviewed, dictated and finalized at location B.
== END 2023-12-09 16:58 | disposition home or self-care (01) ==
PROVIDERS: PCP Emergency Medicine; Visit Provider Obstetrics & Gynecology
DX: Z12.31 Encounter for screening mammogram for malignant neoplasm of breast (principal)
CPT/HCPCS: 77063; 77067

== ENCOUNTER 2024-12-29 12:15 | Emergency (ER) | payer OTHER, SELFPAY ==
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
[2024-12-29 12:29] VITALS: BP 152/80; PULSE 79; RESP 18; TEMP 36.4; O2SAT 100
--- OUTSIDE RECORDS SUMMARY | 2024-12-29 13:47 | XMS_ITS ---
Author Organization [facility] [place] ([address]) Address [address] [place] [address] Care Team Providers Care Hole Filler Name Role Phone Bossman Bullock Primary Care Provider Ursula Paredes Unavailable [phone] REASON FOR VISIT [facility] follow-up Encounters Encounter Location Date Provider Diagnosis [facility] [place] [address] [place] [address] 11/05/2023 Ursula Mayes Plan Of Treatment No Information Progress Notes * Sanjana CARLOS ADOB:1970 (54 yo F)Acc No.[id number]:11/05/2023 Progress Notes Patient: Sanjana MCADAMS Provider: Miguelito Mayes MD :1970 A ge:53 Y S ex:Female Date:11/05/2023 Address:[address] [facility] Pcp:Bossman Bullock Subjective: * Chief Complaints: * 1 . [facility] follow-up. * Medical History: Objective: * Vitals: Assessment: Plan: * Treatment: * Billing Information: * Visit Code: * Procedure Codes: * Electronic signature of Danyelle Mayes MD on 12/29/2024 at 01:47 PM CDT Sign off status: Pending * Provider: Miguelito Mayes MD Date: 0 11/05/2023 Generated for Nava fields/Andra/Cecilio on: 0 12/29/2024 01:47 PM CDT
--- OUTSIDE RECORDS SUMMARY | 2024-12-29 13:47 | XMS_ITS | Patient Health Record ---
Author Organization [facility] [place] ([address]) Address [address] [place] [address] Care Team Providers Care Psychologist Private Practice Name Role Phone Bossman Bullock Primary Care Provider Unavailvelia e Ursula Mayes Unavailable [phone] Allergies No Known Allergies Reason For Referral No Information Medications Medication SIG (Take, Route, Frequency, Duration) Notes Start Date End Date Status Multivitamin - 1 tab(s) orally once a day Active Calcium *Please review and pick correct strength-formula tion from [facility] options. If intended option is not shown, discontinue and re-order from Quick Search* Active Aldactone 50 MG 1 tab(s) orally daily Active Estradiol 2 MG 1 tab(s) orally once a day Active METHYLPREDNISOLONE DOSE PACK 4 mg as directed po daily for 6 days 10/15/2023 Active NASONEX 50 MCG/INH 2 SPRAY(S), AVOID NASAL SEPTUM EACH NOSTRIL ONCE A DAY, PRN for 30 prn *Please review for potential replacement for e-prescription and drug interaction check* Active Cetirizine HCl 10 MG 1 tab(s) orally twice per day for 0 days Active Venlafaxine HCl ER 150 MG 1 cap(s) orally once a day Active methylPREDNISolone 4 MG as directed Oral Daily for 6 days 09/29/2023 Active METHYLPREDNISOLONE 4 mg as directed Oral Daily for 6 days 09/29/2023 Active Levothyroxine Sodium 125 MCG 1 tab(s) orally once a day Active ALDACTONE 50 mg 1 tab(s) orally daily Active Hyoscyamine Sulfate 0.125 MG 1 tab(s) sublingually every 4 hours Active Famotidine 20 MG 1 tab(s) orally 2 times a day for 30 day(s) Active WEGOVY (2.4 MG DOSE) 2.4 MG/0.75 ML (2.4 MG DOSE) DIRECTED SUBCUTANEOUSLY ONCE A WEEK *Please review for potential replacement for e-prescription and drug interaction check* Active CETIRIZINE HYDROCHLORIDE 10 mg 1 tab(s) orally twice per day for 0 days Active CALCIUM Active MULTIVITAMIN Multiple Vitamins 1 tab(s) orally once a day Active FAMOTIDINE 20 mg 1 tab(s) orally 2 times a day for 30 day(s) Active HYOSCYAMINE 0.125 mg 1 tab(s) sublingually every 4 hours Active VENLAFAXINE 150 mg 1 cap(s) orally once a day Active LEVOTHYROXINE 125 mcg (0.125 mg) 1 tab(s) orally once a day Active ESTRADIOL 2 mg 1 tab(s) orally once a day Active methylPREDNISolone 4 MG as directed po daily for 6 days 10/15/2023 Active Immunizations Vaccine Route Administration Date Status Comme nts NOC Influenza-Fluzone 0 04/19/2013 Administered Social History Tobacco Use: Social History Observation Description Date Details (start date - stop date) Former Smoker NA - NA Smoking Smart Form: Question Answer Notes Are you a: former smoker How long it has been since you last smoked? > 10 years Problems Problem Type SNOMED Code ICD Code Onset Dates Problem Status W/U Status Risk Notes Problem Chronic allergic conjunctivitis (78511067) Other chronic allergic conjunctivitis (H10.45) Active confirmed Problem Allergic rhinitis caused by pollen (disorder) (76637229) Allergic rhinitis due to pollen (J30.1) Active confirmed Problem Allergic rhinitis (33301546) Other allergic rhinitis (J30.89) Active confirmed Problem Contact dermatitis caused by cosmetics (07363966) Allergic contact dermatitis due to cosmetics (L23.2) Active confirmed Plan Of Treatment No Information Insurance Providers Payer Name Payer Address Payer Phone Subscriber Number Group Number Insured Name Patient Relationship to Insured Coverage Start Date Coverage End Date [employer] [address] [place] [address] [phone] [id number] Sanjana Carlos Self - patient is the insured Medical (General) History Medical History History ICD Code Hypothyroidism (acquired) 244.9 Polycystic ovaries 256.4 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
--- OUTSIDE RECORDS SUMMARY | 2024-12-29 13:47 | XMS_ITS ---
Author Organization [email or web address] [place] ([address]) Address [address] [place] [address] Care Team Providers Care Journeyman Tool And Die Maker Name Role Phone Ravinmikel Bossman Primary Care Provider Unavailabl e Ursula Mayes Unavailable [phone] ZZ-Migration, Provider Unavailable Unavailab le [facility] Conversion Encounter Medications Medication SIG (Take, Route, [...] po daily for 6 days 10/15/2023 Active WEGOVY (2.4 MG DOSE) 2.4 MG/0.75 ML (2.4 MG DOSE) DIRECTED SUBCUTANEOUSLY ONCE A WEEK *Please review for potential replacement for e-prescription and drug interaction check* Active Multivitamin - 1 tab(s) orally once a day Active Calcium *Please review and pick correct strength-formula [facility]ion [facility]. If intended option is not shown, discontinue and re-order from Quick Search* Active Aldactone 50 MG 1 tab(s) orally daily Active Estradiol 2 MG 1 tab(s) orally once a day Active Levothyroxine Sodium 125 MCG 1 tab(s) orally once a day Active methylPREDNISolone 4 MG as directed Oral Daily for 6 days 09/29/2023 Active Hyoscyamine Sulfate 0.125 MG 1 tab(s) sublingually every 4 hours Active Famotidine 20 MG 1 tab(s) orally 2 times a day for 30 day(s) Active Encounters Encounter Location Date Provider Diagnosis [facility] [place] [address] [place] [address] 12/27/2023 Provider ZZ-Migration Plan Of Treatment Medication Medication Name Sig Start Date Stop Date Notes methylPREDNISolone 4 MG as directed po daily for 6 days methylPREDNISolone 4 MG as directed Oral Daily for 6 days 09/29/2023 Progress Notes * ROBE Sanjana ADOB:1970 (54 yo F)Acc No.[id number]:12/27/2023 Patient: Sanjana MCADAMS Provider: Garrison brewer Migration :1970 A ge:53 Y S ex:Female Date:12/27/2023 Address:[address] [place], [place] [address] Pcp:Bossman Bullock Subjective: * Chief Complaints: * [facility] * Medical History: * Medications: [...] *Please review and pick correct [facility]ulation [facility] options. If intended option is not shown, [...] * Electronic signature of Daniel SORTO-Migration on 12/29/2024 at 01:47 PM CDT Sign off status: Pending * Provider: Garrison brewer Migration Date: 12/27/2023 Generated for Nava fields/Andra/Cecilio on: 12/29/2024 01:47 PM CDT
--- OUTSIDE RECORDS SUMMARY | 2024-12-29 13:47 | XMS_ITS | Clinical Summary ---
Author Organization [facility] Address [address] [place] [address] Care Team Providers Care Tack Cutter Name Role Phone Bossman Bullock MD Primary Care Provider + [phone] Source Comments [facility],non-owned Affiliates and Associated Physician Practices is amultiple site organization consisting of ambulatory clinics and hospital sitesin [place], [place], [place] and [place]. This disclosure is being madepursuant to the Care Everywhere program and may not contain all information available regarding this patient. Last updated 18.[facility] Allergies No known active allergies Medications * Be aware that medications may not be up to date on this document. Alwaysverify current medications with the patient. venlafaxine XR 24hr (EFFEXOR XR) 150 MG capsule Take 1 (one) capsule by mouth once daily 0 Active cetirizine (ZYRTEC) 10 MG tablet Take 1 (one) tablet by mouth once daily Active levothyroxine (SYNTHROID) 125 MCG tablet Take 1 (one) tablet by mouth once daily 0 Active omeprazole (PRILOSEC) 20 MG capsule Take 1 (one) capsule by mouth once daily 1 Active spironolactone (ALDACTONE) 50 MG tablet Take 1 (one) tablet by mouth once daily 1 Active Zinc 30 MG Take 1 tablet by mouth once daily Active celecoxib (CeleBREX) 200 MG capsule Take 1 (one) capsule by mouth once daily 4 Active estradiol (Estrace) 2 MG tablet Take 1 (one) tablet by mouth once daily 4 Active Zepbound 12.5 MG/0.5ML injection Inject 15 (fifteen) mg subcutaneously every 7 days Friday 4 Active Multiple Vitamins-[place] als (HAIR SKIN & NAILS PO) Take 1 tablet by mouth once daily Active CALCIUM CITRATE PO Take 1 tablet by mouth once daily Active Ascorbic Acid (VITAMIN C PO) Take 1 tablet by mouth once daily Active MAGNESIUM PO Take 1 tablet by mouth once daily Active Cyanocobalamin (VITAMIN B-12 PO) Take 1 tablet by mouth once daily Active azithromycin (Zithromax) 250 MG tablet 5 Active fluconazole (Diflucan) 150 MG tablet 5 Active Active Problems Problem Noted Date Diagnosed Date Hiatal hernia 07/16/2024 Morbid obesity 11/01/2020 Encounters Date Type Department Care Team Description 12/24/2024 Telephone [facility] Health Weight Management Services [id number] [facility], [facility] [address] [place] [id number] Jina Zuniga APRN-IVONNE Appointment from Last 3 Months Immunizations Immunization Administration Dates Next Due FLU VACCINE QUAD IIV4 PF ID 05/30/2016 Family History Medical History Relation Name Comments Hypertension Father Thyroid Disease Mother Cancer - Colon Paternal Grandfather Cancer - Pancreatic Paternal Grandmother Relation Name Status Comments Father Alive Mother Alive Paternal Grandfather Paternal Grandmother Social History Tobacco Use Types Packs/Day Years Used Date Smoking Tobacco: Never Smokeless Tobacco: Never Alcohol Use Standard Drinks/Week Comments Yes 1 (1 standard drink = 0.6 oz pur e alcohol) very seldom AUDIT-C Answer Date Recorded Q1: How often do you have a drink containing alc ohol? Monthly or less 07/16/2024 Q2: How many drinks containi ng alcohol do you have on a typical day when you are drinking? 1 or 2 07/16/2024 Q3: How often do you have si x or more drinks on one occasion? Never 07/16/2024 Overall Financial Resource Strain (CARDIA) Answe r Date Recorded How hard is it for you to pa y for the very basics like food, housing, medical care, and heating? Not hard at all 07/16/2024 [facility] [place] [facility] - Occupational Stress Questionnaire Answer Date Recorded Do you feel stress - tense, restless, nervous, or anxious, or unable to sleep at night because your mind is troubled all the time - these days? Not at all 07/16/2024 Hunger Vital Sign Answer Date Recorded Worried About Running Out of Food in the Last Ye ar Not on file 07/16/2024 Within the past 12 months, t he food you bought just didn't last and you didn't have money to get more. Never true 07/16/2024 PRAPARE - Transportation Answer Date Re corded In the past 12 months, has l ack of transportation kept you from medical appointments or from getting medications? No 09/2024 In the past 12 months, has l ack of transportation kept you from meetings, work, or from getting things needed for daily living? No 07/16/2024 Housing Stability Vital Sign Answer [place] e Recorded In the last 12 months, was t here a time when you were not able to pay the mortgage or rent on time? No 07/16/2024 In the past 12 months, how m any times have you moved where you were living? 0 07/16/2024 At any time in the past 12 m [facility], were you homeless or living in a prison (including now)? 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 Gender Identity Female 09/24/2020 9:35 AM CDT Sexual Orientation Straight 09/24/2020 9: 35 AM CDT Last Filed Vital Signs Vital Sign Reading Time Taken Comments Blood Pressure 110/72 07/21/2024 9:47 AM [employer] SCHOOL MATH TEACHER Pulse 100 07/21/2024 9:47 AM [employer] SCHOOL MATH TEACHER Temperature 36.2 C (97.1 F) 07/21/2024 9:47 AM [employer] SCHOOL MATH TEACHER Respiratory Rate 18 07/17/2024 7:51 AM [employer] SCHOOL MATH TEACHER Oxygen Saturation 97% 07/21/2024 9:47 AM [employer] SCHOOL MATH TEACHER Inhaled Oxygen Concentration - - Weight 90.7 kg (200 lb) 07/21/2024 9:47 AM MIDD[employer] SCHOOL MATH TEACHER Height 167.6 cm (5' 6) 07/21/2024 9:47 AM MIDDLE SCHOOL MATH TEACHER Body Mass Index 32.28 07/21/2024 9:47 AM MIDDLE SCHOOL MATH TEACHER Plan of Treatment Upcoming Encounters Date Type Department Care Team (Late st Contact Info) Description 03/24/2025 9:30 AM CDT Office Visit [facility] Services [id number] [facility] [address] [place] [address] Jina Zuniga APRN-BUSINESS UNIT MANAGER [address] [place] [address] Health Maintenance Due Date Last Done Comments COLOGUARD (AGES 45-75) - COLON CA SCREENING 1970 COLON MONITORING 1970 COLONOSCOPY - COLON CA SCREENING 1971 CT COLONOGRAPHY - COLON CA SCREENING 1970 Colorectal Cancer Screening 1970 FIT - COLON CA SCREENING 1971 FLEX SIG - COLON CA SCREENING 1970 MAMMOGRAM 1970 HIV SCREENING 09/27/1986 HEPATITIS C SCREENING 09/23/1989 DTAP/TDAP/TD VACCINES (1 - Tdap) 09/27/1990 HEPATITIS B VACCINE (1 of 3 - 19+ 3-dose series) 09/27/1990 PAP SMEAR 09/27/1992 PNEUMOCOCCAL VACCINE 50+ (1 of 1 - PCV) 09/27/2021 ZOSTER VACCINE (1 of 2) 09/27/2021 COVID-19 VACCINE (3 - season) 2024 05/11/2021, 09/15/2020 DEPRESSION SCREENING 07/14/2024 INFLUENZA VACCINE (Season Ended) 2025 05/03/2021, 04/04/2020, 04/08/2019, Additional history exists LIPID TESTING 05/06/2027 05/06/2022, 12/28/2019 SCREENING FOR DIABETES 07/17/2027 , 07/02/2024, 05/06/2022, Additional history exists HIB VACCINE Aged Out No longer eligi ble based on patient's age to complete this topic HPV VACCINE Aged Out No longer eligi ble based on patient's age to complete this topic MENINGOCOCCAL (Group B) VACCINE SHARED DECISION-MAKING Aged Out No longer eligible based on patient's age to complete this topic MENINGOCOCCAL GROUPS A/C/Y/W VACCINE Aged Out No longer eligible based on patient's age to complete this topic Procedures Procedure Name Priority Date/Time Associated Diagnosis Comments BASIC METABOLIC PANEL (CALCIUM TOTAL) AM Draw 07/17/2024 4:09 AM [employer] SCHO[employer] MATH TEACHER Hiatal hernia from Last 3 Months or Most Recently Relevant to Health Maintenance Results * (ABNORMAL) BASIC METABOLIC PANEL (CALCIUM TOTAL) (07/17/2024 4:09 AM [facility]) Glucose 101(H) 70 - 99 mg/dL 07/17/2024 4:47 AM [facility] Sodium 136 136 - 145 mmol/L 07/17/2024 4:47 AM [facility] Potassium 4.2 3.5 - 5.1 mmol/L 07/17/2024 4:47 AM [facility] Chloride 108(H) 98 - 107 mmol/L 07/17/2024 4:47 AM [facility] CO2 23 22 - 29 mmol/L 07/17/2024 4:47 AM [facility] Calcium 8.5 8.4 - 10.4 mg/dL 07/17/2024 4:47 AM [facility] Anion Gap 5(L) 6 - 16 mmol/L 07/17/2024 4:47 AM [facility] BUN 9 7 - 26 mg/dL 07/17/2024 4:47 AM [facility] Creatinine 0.65 0.57 - 1.11 mg/dL 07/17/2024 4:47 AM [facility] eGFR by CKD-EPI >90 >=90 mL/min/1.7 3 m2 07/17/2024 4:47 AM [facility] Blood BLOOD SPECIMEN / Unknown Venipuncture / Unknown 07/17/2024 4:09 AM [employer] SCHOOL MATH TEACHER 07/17/2024 4:20 AM [facility] Danny Ray DO LAB - CHEMISTRY ORDERABLES Final Result [facility] [address] [place] [address] from Last 3 Months or Most Recently Relevant to Health Maintenance Insurance [place] [employer] Advance Directives * Full Code (Latest Code Status on File) Date Activated Date Inactivated Comments 07/16/2024 9:43 AM 07/17/2024 3:28 PM * Full Code Date Activated Date Inactivated Comments 11/01/2020 10:27 AM 11/02/2020 6:56 PM Care Teams Tack Cutter Relationship Specialty Start Date End Date Bossman Bullock MD [address] [place] [id number] PCP - General Internal Medicine 05/10/24
--- OUTSIDE RECORDS SUMMARY | 2024-12-29 13:47 | XMS_ITS | Encounter Summary ---
Author Organization [facility] Address [address] [address] Care Team Providers Care Cake Washer Name Role Phone Dylan Torrez DO Primary Care Provider [phone] Bossman Bullock MD Primary Care Provide r Encounter Details Date Type Department Care Team (Late st Contact Info) Description 07/04/2016 Orders Only [facility] ProviderIsra MD [address] [place] [id number] Social History Tobacco Use Types Packs/Day Years Used Date Smoking Tobacco: Never Assessed Comments Unknown Sex and Gender Information Value Date Recorded Sex Assigned at Not on file Legal Sex 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 Historical Provider [facility] SERVICES PROCE DURES Final Result * CARDIOLOGY REPORT (07/04/2016) Anatomical Region Laterality Modality Other Narrative 07/04/2016 Ordered by an unspecified provider. Historical Provider CV CARDIAC SERVICES PROCE DURES Final Result documented in this encounter Visit Diagnoses Not on filedocumented in this encounter Care Teams Cake Washer Relationship Specialty Start Date End Date Dylan Torrez DO PCP - General 05/20/16 10/10/16 Bossman Bullock MD [address] [place] [address] PCP - General Emergency Medicine 05/06/22 documented as of this encounter
--- OUTSIDE RECORDS SUMMARY | 2024-12-29 13:48 | XMS_ITS | Clinical Summary ---
Author Organization [facility] [address] Address [address] [place] [address] Care Team Providers Care Silica Dry Press Helper Name Role Phone Bossman Bullock MD Primary Care Provide r Allergies No known active allergies Medications multivitamin tablet tablet take 1 tablet by oral route every day with food 0 0 6 Active lansoprazole (PREVACID) 30 mg capsule take 1 capsule by oral route every day before a meal 0 0 6 Active venlafaxine XR (EFFEXOR-XR) 150 mg 24 hr capsule Take 1 capsule (150 mg total) by mouth daily 0 Active levothyroxine (SYNTHROID) 125 mcg tablet Take 1 tablet (125 mcg total) by mouth moisture meter operator before breakfast 0 Active celecoxib (CeleBREX) 200 mg capsule Take 1 capsule (200 mg total) by mouth daily 2 Active cetirizine (ZyrTEC) 10 mg tablet Take 2 tablets (20 mg total) by mouth daily Active zinc gluconate 30 mg tablet Take 1 tablet/capsule by mouth daily Active Zepbound 15 mg/0.5 mL pen injector INJECT 15 MG INTO SKIN ONCE WEEKLY 4 Active spironolactone (ALDACTONE) 50 mg tablet Take 1 tablet (50 mg total) by mouth daily Active ASCORBIC ACID, VITAMIN C, ORAL Take 1 tablet by mouth daily Active CALCIUM CITRATE ORAL Take 1 tablet by mouth daily Active cyanocobalamin, vitamin B-12, (VITAMIN B-12 ORAL) Take 1 tablet by mouth daily Active MAGNESIUM ORAL Take 1 tablet by mouth daily Active fluticasone propionate (FLONASE) 50 mcg/actuation nasal spray Administer 1 spray into each nostril daily 5 Active multivitamin with minerals tablet Take 1 tablet by mouth daily Active Active Problems Problem Noted Date Diagnosed Date Abnormal computed tomography angiography (CTA) 0 08/12/2024 Near syncope 05/06/2022 Class 2 obesity in adult 04/24/2021 Hypertriglyceridemia 12/28/2019 Morbid obesity with BMI of 45.0-49.9, adult 12/12 Bicuspid aortic valve 12/15/2018 Polycystic ovarian disease 12/15/2018 Nonrheumatic aortic valve stenosis 07/04/2016 Overview (10/17/2016): Nonrheumatic aortic (valve) stenosis Surgical History Surgery Date Site/Laterality Comments CHOLECYSTECTOMY Cholecystectomy TONSILLECTOMY Tonsillectomy BARIATRIC SURGERY 10/12/2020 - 11/10/2020 Laparoscopic sleeve gastrectomy ( Cory) HYSTERECTOMY HIATAL HERNIA REPAIR CARDIAC CATHETERIZATION 09/09/2024 N/A Procedure: LEFT HEART CATHETERIZATION WITH CORONARY ANGIOGRAPHY AND WITH OR WITHOUT LEFT VENTRICULOGRAM [id number]; Surgeon: Sai George MD; Location: CARDIAC OFFICE CORRESPONDENT; Service: Cardiovascular; Laterality: N/A; CARDIAC CATHETERIZATION 09/09/2024 N/A Procedure: ULTRASOUND GUIDANCE FOR VASCULAR ACCESS S&I [id number]; Surgeon: Sai George MD; Location: CARDIAC OFFICE CORRESPONDENT; Service: Cardiovascular; Laterality: N/A; AORTOGRAM 09/09/2024 Groin Procedure: AORTOGRAM; Surgeon: Sai George MD; Location: CARDIAC OFFICE CORRESPONDENT; Service: Cardiovascular;; Medical History Medical History Date Comments Hx Other Medical IBS with inflam matory features, no definite Crohn'; Comments: ELU 07/04/2016 - Hx Other Medical PCOS; Comments: ELU 07/04/2016 - Hx Other Medical hysterectomy; C omments: U 07/04/2016 - GERD (gastroesophageal reflux disease) 1996 Depression 2017 Thyroid disease 2004 Abnormal computed tomography angiography (CTA) PONV (postoperative nausea and vomiting) Motion sickness Heart murmur Bicuspid aortic valve Hypothyroidism Family History Medical History Relation Name Comments Other Brother 2 Alive and well; Other Father Alive and well; Heart attack Maternal Grandfather Tee Hypertension Maternal Grandfather Tee Stroke Maternal Grandfather Tee Cancer Maternal Grandmother Marybeth Other Mother Alive and well; COPD Paternal Grandfather Tee Relation Name Status Comments Brother 1 Alive Brother 2 Father Alive Maternal Grandfather Tee Maternal Grandmother Marybeth Mother Alive Paternal Grandfather Tee Social History Tobacco Use Types Packs/Day Years Used Date Smoking Tobacco: Former Cigarettes Q uit: 04/24/1990 Smokeless Tobacco: Never Tobacco Cessation:Counseling Given: Not Answered Alcohol Use Standard Drinks/Week Comments Yes 0 (1 standard drink = 0.6 oz pur e alcohol) AUDIT-C Answer Date Recorded Q1: How often do you have a drink containing alc ohol? Monthly or less 09/09/2024 Q2: How many drinks containi ng alcohol do you have on a typical day when you are drinking? 1 or 2 09/09/2024 Q3: How often do you have si x or more drinks on one occasion? Less than monthly 09/09/2024 Personal Safety Answer Date Recorded Have you ever been in or are you currently in a harmful physical or emotional relationship or is someone making you feel afraid or unsafe? Denies 09/09/2024 Comments Unknown Sex and Gender Information Value Date Recorded Sex Assigned at Not on file Legal Sex Female 11:41 PM MANAGER FINANCIAL SYSTEMS Gender Identity Not on file Sexual Orientation Not on file Obstetrics History Last Filed Vital Signs Vital Sign Reading Time Taken Comments Blood Pressure 112/59 09/09/2024 12:25 PM MANAGER FINANCIAL SYSTEMS Pulse 77 09/09/2024 12:30 PM MANAGER FINANCIAL SYSTEMS Temperature 36.6 C (97.8 F) 09/09/2024 6:48 AM MANAGER FINANCIAL SYSTEMS Respiratory Rate 16 09/09/2024 6:48 AM MANAGER FINANCIAL SYSTEMS Oxygen Saturation 98% 09/09/2024 12:30 PM MANAGER FINANCIAL SYSTEMS Inhaled Oxygen Concentration - - Weight 97.1 kg (214 lb) 09/09/2024 6:48 AM MANAGER FINANCIAL SYSTEMS Height 167.6 cm (5' 6) 09/09/2024 6:48 AM MANAGER FINANCIAL SYSTEMS Body Mass Index 34.54 09/09/2024 6:48 AM MANAGER FINANCIAL SYSTEMS Plan of Treatment Health Maintenance Due Date Last Done Comments Breast Cancer Screening-Mammogram 1971 Colon Cancer Screening-Colonoscopy 1971 Depression Screening 1971 Hepatitis C Screening 1971 DTaP/Tdap/Td Vaccine (1 - Tdap) 09/27/1982 Hepatitis B Screening 09/27/1989 Regular Well Visit/Exam 18-64 09/27/1989 Zoster Vaccine (1 of 2) 09/27/2021 Influenza Vaccine (Season Ended) 2025 04/08/2019, 04/29/2018, 04/17/2017, Additional history exists Pneumococcal vaccine <65 Aged Out No longer eligible based on patient's age to complete this topic Insurance [place] [id number] [facility] [id number] Advance Directives For more information, please contact: [phone] Documents on File Type Date Recorded Patient Recreation Instructor Expl anation ADVANCE DIRECTIVE 09/09/2024 7:13 AM Power of Rink Rat-Medical Care Teams Silica Dry Press Helper Relationship Specialty Start Date End Date Bossman Bullock MD [address] [place] [address] PCP - General Emergency Medicine 05/06/22
--- OUTSIDE RECORDS SUMMARY | 2024-12-29 13:48 | XMS_ITS | Referral Summary ---
Author Organization [facility] [address] Address [address] [place] [address] Care Team Providers Care Paraffin Machine Operator Name Role Phone Bossman Bullock MD Primary [...] 1 tablet (125 mcg total) by mouth environmental health technician before breakfast 0 Active celecoxib (CeleBREX) 200 [...] Administer 1 spray into each nostril daily Active multivitamin with minerals tablet Take 1 [...] 07/04/2016 Overview (10/17/2016): Nonrheumatic aortic (valve) stenosis Social History Tobacco Use Types Packs/Day Years [...] on file Legal Sex Female 11:41 PM GEOGRAPHIC AREA INTELLIGENCE OFFICER Gender Identity Not on file Sexual Orientation Not on file Last Filed Vital Signs Vital Sign Reading Time Taken Comments Blood Pressure 112/59 09/09/2024 12:25 PM GEOGRAPHIC AREA INTELLIGENCE OFFICER Pulse 77 09/09/2024 12:30 PM GEOGRAPHIC AREA INTELLIGENCE OFFICER Temperature 36.6 C (97.8 F) 09/09/2024 6:48 AM GEOGRAPHIC AREA INTELLIGENCE OFFICER Respiratory Rate 16 09/09/2024 6:48 AM GEOGRAPHIC AREA INTELLIGENCE OFFICER Oxygen Saturation 98% 09/09/2024 12:30 PM GEOGRAPHIC AREA INTELLIGENCE OFFICER Inhaled Oxygen Concentration - - Weight 97.1 kg (214 lb) 09/09/2024 6:48 AM GEOGRAPHIC AREA INTELLIGENCE OFFICER Height 167.6 cm (5' 6) 09/09/2024 6:48 AM GEOGRAPHIC AREA INTELLIGENCE OFFICER Body Mass Index 34.54 09/09/2024 6:48 AM GEOGRAPHIC AREA INTELLIGENCE OFFICER Plan of Treatment Not on file Insurance [facility] [id number] [facility] [id number] Advance Directives For more information, please contact: [phone] Documents on File Type Date Recorded Patient Installer Soft Top Expl anation ADVANCE DIRECTIVE 09/09/2024 7:13 AM Power of Supervisor [employer]-Medical Care Teams Paraffin Machine Operator Relationship Specialty Start Date End Date Bossman Bullock MD [address] [place] [address] PCP - General Emergency Medicine 05/06/22
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
[2024-12-29 16:00] VITALS: BP 134/70; PULSE 70; RESP 16; O2SAT 99
--- OUTSIDE RECORDS SUMMARY | 2024-12-29 17:08 | XMS_ITS | Encounter Summary ---
Author Organization [facility] Address [address] [address] Care Team Providers Care Field Crop Ii Farmworker Name Role Phone Dylan Torrez DO Primary Care Provider [phone] Bossman Bullock MD Primary Care Provide r Encounter Details Date Type Department Care Team (Late st Contact Info) Description 07/04/2016 Orders Only [facility] ProviderIsra MD [address] [place] [id number] Social History Tobacco Use Types Packs/Day Years Used Date Smoking Tobacco: Never Assessed Comments Unknown Sex and Gender Information Value Date Recorded Sex Assigned at Not on file Legal Sex Female 11:41 PM RN TRANSPLANT Gender Identity Not on file Sexual Orientation [...] on filedocumented in this encounter Care Teams Field Crop Ii Farmworker Relationship Specialty Start Date End Date Dylan Torrez DO PCP - General 05/20/16 10/10/16 Bossman Bullock MD [address] [place] [address] PCP - General Emergency Medicine 05/06/22 documented as of this encounter
--- OUTSIDE RECORDS SUMMARY | 2024-12-29 17:08 | XMS_ITS | Clinical Summary ---
Author Organization [facility] [employer] Address [address] [place] [address] Care Team Providers Care Pan Devulcanizer Name Role Phone Bossman Bullock MD Primary Care Provider + [phone] [facility] [employer],non-owned Affiliates and Associated Physician Practices is amultiple site organization consisting of ambulatory clinics and hospital sitesin [place], [place], [place] and [place]. This disclosure is being madepursuant to the Care Everywhere program and may not contain all information available regarding this patient. Last updated 18.[facility] [employer] Allergies No known active allergies Medications * [...] every 7 days Friday 4 Active Multiple Vitamins-[place] als (HAIR SKIN & NAILS PO) Take [...] Type Department Care Team Description 12/24/[address] [facility] Health Weight Management Services [id number] [address], [facility] [address] [id number] Jina Zuniga APRN-IVONNE Appointment from Last 3 [...] and heating? Not hard at all 07/16/2024 [facility] - Occupational Stress [...] any time in the past 12 m [facility], were you homeless or living in a [facility] (including now)? No 07/16/2024 Comments No Sex and Gender Information Value Date Recorded Sex Assigned at Female 09/24/2020 9:35 AM CDT Legal Sex Female 6:20 AM SUPERVISOR FUSING ROOM Gender Identity Female 09/24/2020 9:35 AM CDT Sexual Orientation Straight 09/24/2020 9: 35 AM CDT Last Filed Vital Signs Vital Sign Reading Time Taken Comments Blood Pressure 110/72 07/21/2024 9:47 AM SUPERVISOR FUSING ROOM Pulse 100 07/21/2024 9:47 AM SUPERVISOR FUSING ROOM Temperature 36.2 C (97.1 F) 07/21/2024 9:47 AM SUPERVISOR FUSING ROOM Respiratory Rate 18 07/17/2024 7:51 AM SUPERVISOR FUSING ROOM Oxygen Saturation 97% 07/21/2024 9:47 AM SUPERVISOR FUSING ROOM Inhaled Oxygen Concentration - - Weight 90.7 kg (200 lb) 07/21/2024 9:47 AM SUPERVISOR FUSING ROOM Height 167.6 cm (5' 6) 07/21/2024 9:47 AM SUPERVISOR FUSING ROOM Body Mass Index 32.28 07/21/2024 9:47 AM SUPERVISOR FUSING ROOM Plan of Treatment Upcoming Encounters Date Type Department Care Team (Late st Contact Info) Description 03/24/2025 9:30 AM CDT Office Visit [facility] Weight Management Services [id number] [address], [facility] [address] [place] [address] Jina Zuniga APRN-BUSINESS INTERN [address] [place] [address] Health Maintenance Due Date Last [...] (CALCIUM TOTAL) AM Draw 07/17/2024 4:09 AM SUPERVISOR FUSING ROOM Hiatal hernia from Last 3 Months or Most Recently Relevant to Health Maintenance Results * (ABNORMAL) BASIC METABOLIC PANEL (CALCIUM TOTAL) (07/17/2024 4:09 AM [facility]) Glucose 101(H) 70 - 99 mg/dL 07/17/2024 4:47 AM [facility] Sodium 136 136 - 145 mmol/L 07/17/2024 4:47 AM [facility] Potassium 4.2 3.5 - 5.1 mmol/L 07/17/2024 4:47 AM [facility] Chloride 108(H) 98 - 107 mmol/L 07/17/2024 4:47 AM [facility] CO2 23 22 - 29 mmol/L 07/17/2024 4:47 AM [facility] Calcium 8.5 8.4 - 10.4 mg/dL 07/17/2024 4:47 AM [facility] Anion Gap 5(L) 6 - 16 mmol/L 07/17/2024 4:47 AM [facility] BUN 9 7 - 26 mg/dL 07/17/2024 4:47 AM [facility] Creatinine 0.65 0.57 - 1.11 mg/dL 07/17/2024 4:47 AM [facility] eGFR by CKD-EPI >90 >=90 mL/min/1.7 3 m2 07/17/2024 4:47 AM [facility] Blood BLOOD SPECIMEN / Unknown Venipuncture / Unknown 07/17/2024 4:09 AM SUPERVISOR FUSING ROOM 07/17/2024 4:20 AM [facility] Danny Ray DO LAB - CHEMISTRY ORDERABLES Final Result [facility] [address] [place] [address] from Last 3 Months or Most Recently Relevant to Health Maintenance Insurance [employer] Advance Directives * Full Code (Latest Code Status on File) Date Activated Date Inactivated Comments 07/16/2024 9:43 AM 07/17/2024 3:28 PM * Full Code Date Activated Date Inactivated Comments 11/01/2020 10:27 AM 11/02/2020 6:56 PM Care Teams Pan Devulcanizer Relationship Specialty Start Date End Date Bossman Bullock MD [address] [place] [id number] PCP - General Internal Medicine 05/10/24
--- OUTSIDE RECORDS SUMMARY | 2024-12-29 17:08 | XMS_ITS | Clinical Summary ---
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 HELPER; Service: Cardiovascular; Laterality: N/A; CARDIAC CATHETERIZATION 09/09/2024 N/A Procedure: ULTRASOUND GUIDANCE FOR VASCULAR ACCESS S&I [id number]; Surgeon: Sai George MD; Location: CARDIAC 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 OPERATOR HELPER; Service: Cardiovascular; Laterality: N/A; AORTOGRAM 09/09/2024 Groin Procedure: AORTOGRAM; Surgeon: Sai George MD; Location: CARDIAC DOUGHNUT MACHINE OPERATOR HELPER; Service: Cardiovascular;; Medical History Medical History Date [...] on file Legal Sex Female 11:41 PM CLINICAL OPERATIONS CONSULTANT Gender Identity Not on file Sexual Orientation Not on file Obstetrics History Last Filed Vital Signs Vital Sign Reading Time Taken Comments Blood Pressure 112/59 09/09/2024 12:25 PM CLINICAL OPERATIONS CONSULTANT Pulse 77 09/09/2024 12:30 PM CLINICAL OPERATIONS CONSULTANT Temperature 36.6 C (97.8 F) 09/09/2024 6:48 AM CLINICAL OPERATIONS CONSULTANT Respiratory Rate 16 09/09/2024 6:48 AM CLINICAL OPERATIONS CONSULTANT Oxygen Saturation 98% 09/09/2024 12:30 PM CLINICAL OPERATIONS CONSULTANT Inhaled Oxygen Concentration - - Weight 97.1 kg (214 lb) 09/09/2024 6:48 AM CLINICAL OPERATIONS CONSULTANT Height 167.6 cm (5' 6) 09/09/2024 6:48 AM CLINICAL OPERATIONS CONSULTANT Body Mass Index 34.54 09/09/2024 6:48 AM CLINICAL OPERATIONS CONSULTANT Plan of Treatment Health Maintenance Due Date [...] patient's age to complete this topic Insurance [place] [id number] [facility] [id number] Advance Directives For more information, please contact: [phone] Documents on File Type Date Recorded Patient Phone Circuit Operator Expl anation ADVANCE DIRECTIVE 09/09/2024 7:13 AM Power of Chlorination Operator-Medical Care Teams Table Keeper Relationship Specialty Start Date End Date Bossman Bullock MD [address] [place] [address] PCP - General Emergency Medicine 05/06/22
--- OUTSIDE RECORDS SUMMARY | 2024-12-29 17:08 | XMS_ITS | Referral Summary ---
Author Organization [facility] [address] Address [address] [place] [address] Care Team Providers Care Trim Crew Supervisor Name Role Phone Bossman Bullock MD Primary [...] 1 tablet (125 mcg total) by mouth visual inspector before breakfast 0 Active celecoxib (CeleBREX) 200 [...] on file Legal Sex Female 11:41 PM ASSISTANT PROFESSOR OF EDUCATION Gender Identity Not on file Sexual Orientation Not on file Last Filed Vital Signs Vital Sign Reading Time Taken Comments Blood Pressure 112/59 09/09/2024 12:25 PM ASSISTANT PROFESSOR OF EDUCATION Pulse 77 09/09/2024 12:30 PM ASSISTANT PROFESSOR OF EDUCATION Temperature 36.6 C (97.8 F) 09/09/2024 6:48 AM ASSISTANT PROFESSOR OF EDUCATION Respiratory Rate 16 09/09/2024 6:48 AM ASSISTANT PROFESSOR OF EDUCATION Oxygen Saturation 98% 09/09/2024 12:30 PM ASSISTANT PROFESSOR OF EDUCATION Inhaled Oxygen Concentration - - Weight 97.1 kg (214 lb) 09/09/2024 6:48 AM ASSISTANT PROFESSOR OF EDUCATION Height 167.6 cm (5' 6) 09/09/2024 6:48 AM ASSISTANT PROFESSOR OF EDUCATION Body Mass Index 34.54 09/09/2024 6:48 AM ASSISTANT PROFESSOR OF EDUCATION Plan of Treatment Not on file Insurance [id number] [facility] [id number] Advance Directives For more information, please contact: [phone] Documents on File Type Date Recorded Patient Title One Reading Teacher Expl anation ADVANCE DIRECTIVE 09/09/2024 7:13 AM Power of Manager Activities-Medical Care Teams Trim Crew Supervisor Relationship Specialty Start Date End Date Bossman Bullock MD [address] [place] [address] PCP - General Emergency Medicine 05/06/22
== END 2024-12-29 16:10 | disposition home or self-care (01) ==
PROVIDERS: Emergency Provider Emergency Medicine
DX: S42.032A Displaced fracture of lateral end of left clavicle, initial encounter for closed fracture (principal); R91.1 Solitary pulmonary nodule; V89.2XXA Person injured in unspecified motor-vehicle accident, traffic, initial encounter; E03.9 Hypothyroidism, unspecified; F41.8 Other specified anxiety disorders; K21.9 Gastro-esophageal reflux disease without esophagitis; Z87.891 Personal history of nicotine dependence
CPT/HCPCS: 70450; 72125; 72128; 73030; 99284

== ENCOUNTER 2025-04-26 16:03 | Outpatient (CLI) | payer OTHER, SELFPAY ==
--- OUTSIDE RECORDS SUMMARY | 2023-11-05 12:30 | XMS_ITS ---
Author Organization [facility] [place] ([address]) Address [address] [place] [address] Care Team Providers Care Process Trainer Name Role Phone Bossman Bullock Primary Care Provider Ursula Paredes Unavailable [phone] REASON FOR VISIT [facility] follow-up Encounters Encounter Location Date Provider Diagnosis [facility] - [place] [address] [place] [address] 11/05/2023 Ursula Mayes Plan Of Treatment No Information Progress Notes * Sanjana CARLOS ADOB:1970 (54 yo F)Acc No.[id number]:11/05/2023 Progress Notes Patient: Sanjana MCADAMS Provider: Miguelito Mayes MD :1970 A ge:53 Y S ex:Female Date:11/05/2023 Address:[address] [id number] Pcp:Bossman Bullock Subjective: * Chief Complaints: * 1 . [facility] follow-up. * Medical History: Objective: * Vitals: Assessment: Plan: * Treatment: * Billing Information: * Visit Code: * Procedure Codes: * Electronic signature of Danyelle Mayes MD on 04/26/2025 at 05:34 PM CDT Sign off status: Pending * Provider: Miguelito Mayes MD Date: 0 11/05/2023 Generated for Nava fields/Andra/Cecilio on: 1 05:34 PM CDT
--- OUTSIDE RECORDS SUMMARY | 2023-12-27 16:30 | XMS_ITS ---
Author Organization [facility] [place] ([address]) Address [address] [place] [address] Care Team Providers Care Business Development Name Role Phone Ravinmikel Bossman Primary Care Provider Unavailabl e Ursula Mayes Unavailable [phone] ZZ-Migration, Provider Unavailable Unavailab le [facility] Conversion Encounter Medications Medication SIG (Take, Route, Frequency, Duration) Notes Start Date End Date Status NASONEX 50 MCG/INH 2 SPRAY(S), AVOID NASAL SEPTUM EACH NOSTRIL ONCE A DAY, PRN; Duration: 30 prn *Please review for potential replacement for e-prescription and drug interaction check* Active Cetirizine HCl 10 MG 1 tab(s) orally twice per day; Duration: 0 days Active Venlafaxine HCl ER 150 MG 1 cap(s) orally once a day Active methylPREDNISolone 4 MG as directed po daily; Duration: 6 days 10/15/2023 Active WEGOVY (2.4 MG DOSE) 2.4 MG/0.75 ML (2.4 MG DOSE) DIRECTED SUBCUTANEOUSLY ONCE A WEEK *Please review for potential replacement for e-prescription and drug interaction check* Active Multivitamin - 1 tab(s) orally once a day Active Calcium *Please review and pick correct strength[facility]. If intended option is not shown, discontinue and re-order from Quick Search* Active Aldactone 50 MG 1 tab(s) orally daily Active Estradiol 2 MG 1 tab(s) orally once a day Active Levothyroxine Sodium 125 MCG 1 tab(s) orally once a day Active methylPREDNISolone 4 MG as directed Oral Daily; Duration: 6 days 09/29/2023 Active Hyoscyamine Sulfate 0.125 MG 1 tab(s) sublingually every 4 hours Active Famotidine 20 MG 1 tab(s) orally 2 times a day; Duration: 30 day(s) Active Encounters Encounter Location Date Provider Diagnosis [address] [address] 12/27/2023 Provider CydneyZ-Migration Plan Of Treatment Medication Medication Name Sig Start Date Stop Date Notes methylPREDNISolone 4 MG as directed po d aily; Duration: 6 days 10/15/2023 methylPREDNISolone 4 MG as directed Oral Daily; Duration: 6 days 09/29/2023 Progress Notes * CARLOSSanjana ADOB:1970 (54 yo F)Acc No.[id number]:12/27/2023 Patient: Sanjana MCADAMS Provider: Garrison brewer Migration :1970 A ge:53 Y S ex:Female Date:12/27/2023 Address:[address] [place], [place] [address] Pcp:Bossman Bullock Subjective: * Chief Complaints: * [facility] * Medical History: * Medications: T aking Venlafaxine HCl ER 150 MG Capsule Extended Release 24 Hour 1 cap(s) orally once a day , Taking WEGOVY (2.4 MG DOSE) 2.4 MG/0.75 ML (2.4 MG DOSE) SOLUTION DIRECTED SUBCUTANEOUSLY ONCE A WEEK , Notes to Pharmacist: *Please review for potential replacement for e-prescription and drug interaction check*, Taking Famotidine 20 MG Tablet 1 tab(s) orally 2 times a day , Taking Hyoscyamine Sulfate 0.125 MG Tablet 1 tab(s) sublingually every 4 hours , Taking Levothyroxine Sodium 125 MCG Tablet 1 tab(s) orally once a day , Taking Estradiol 2 MG Tablet 1 tab(s) orally once a day , Taking Aldactone 50 MG Tablet 1 tab(s) orally daily , Taking Calcium , Notes to Pharmacist: *Please review and pick correct strength-formulation [facility] options. If intended option is not shown, discontinue and re-order from Quick Search*, Taking Multivitamin - Tablet 1 tab(s) orally once a day , Taking Cetirizine HCl 10 MG Tablet 1 tab(s) orally twice per day , Taking NASONEX 50 MCG/INH NASAL INHALER 2 SPRAY(S), AVOID NASAL SEPTUM EACH NOSTRIL ONCE A DAY, PRN , Notes to Pharmacist: prn *Please review for potential replacement for e-prescription and drug interaction check* Objective: * Vitals: Assessment: Plan: * Treatment: * Billing Information: * Visit Code: * Procedure Codes: * Electronic signature of Daniel SORTO-Migration on 04/26/2025 at 05:34 PM CDT Sign off status: Pending * Provider: Garrison brewer Migration Date: 0 12/27/2023 Generated for Nava fields/Andra/Cecilio on: 1 05:34 PM CDT
--- OUTSIDE RECORDS SUMMARY | 2025-04-25 13:30 | XMS_ITS | Encounter Summary ---
Author Organization [facility] Health Address [address] [facility] [place] [address] Care Team Providers Care Courtesy Car Driver Name Role Phone Bossman Bullock MD Primary Care Provider + [phone] Reason for Visit * Reason Comments Post-Op Encounter Details Date Type Department Care Team (Late Contact Info) Description 04/25/2025 1:30 PM CDT Office Visit [facility] Management Services [id number] [place] [address], [facility] [address] [place] [address] Jina Zuniga, INTAKE WORKER-JIGGER MACHINE OPERATOR [id number] [address] Morbid obesity (HCC) (Primary Dx); Bariatric surgery status; Vitamin deficiency; Vitamin D deficiency Social History Tobacco Use Types Packs/Day Years [...] and heating? Not hard at all 07/16/2024 [place] [facility] - Occupational Stress [...] time in the past 12 m [facility], were you homeless or living in a intermediate (including now)? 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 Gender Identity Female 09/24/2020 9:35 AM CDT Sexual Orientation Straight 09/24/2020 9: 35 AM CDT documented as of this encounter Last Filed Vital Signs Vital Sign Reading Time Taken Comments Blood Pressure 130/74 04/25/2025 1:20 PM CDT Pulse 88 04/25/2025 1:20 PM CDT Temperature 36.1 C (96.9 F) 04/25/2025 1:20 PM CDT Respiratory Rate - - Oxygen Saturation 96% 04/25/2025 1:20 PM CDT Inhaled Oxygen Concentration - - Weight 85.3 kg (188 lb) 04/25/2025 1:20 PM CDT Height 167.6 cm (5' 6) 04/25/2025 1:20 PM CDT Body Mass Index 30.34 04/25/2025 1:20 PM CDT documented in this encounter Functional Status * Is person deaf or have serious hearing difficulty? Answer Date of Assessment Author No 07/16/2024 10:16 AM Ledy Josue RN * Is person blind or have serious difficulty seeing? Answer Date of Assessment Author No 07/16/2024 10:16 AM Ledy Josue RN * Does person have serious difficulty walking/climbing stairs? Answer Date of Assessment Author No 07/16/2024 10:16 AM Ledy Josue RN * Does person have difficulty dressing/bathing? Answer Date of Assessment Author No 07/16/2024 10:16 AM Ledy Josue RN * Does person have difficulty doing errands alone? Answer Date of Assessment Author No 07/16/2024 10:16 AM Ledy Josue RN documented as of this encounter Mental Status * Does person have difficulty concentrating/remembering/making decisions? Answer Entry Date Author No 07/16/2024 10:16 AM Ledy Josue RN documented in this encounter Patient Instructions * Patient Instructions* Jina Zuniga, INTAKE WORKER-JIGGER MACHINE OPERATOR - 04/25/2025 1:41 PM CDT POST OPERATIVE VISIT INSTRUCTIONS ANNUAL Dietary Journaling helps keep you honest and on track! Calculate your protein grams every day. Females should have a minimum of 60 grams per day and men 80 grams per day. It is important that you are learning to eat to live and not live to eat. Food likely does not giveyou as much pleasure as it has in the past. Eating protein is not optional. Failure to follow the guidelines laid out in your dietary booklet can result in serious health problems. You should be getting approximately 1 cup of food per meal. At least half of your meal should be protein. You will notice that you can eat more soft foods (carbohydrates) than protein. Please be sureyou are meeting your protein goals first before adding in many carbohydrates. Continue supplementing with liquid protein or protein bars to meet your protein goals. Foods should be high in protein, sugar-free, no added sugar and low fat. Meals should take a minimum of 30 minutes to consume. 3 meals per day--NO GRAZING. Do not graze on cheese, peanut butter and nuts to meet your protein goals. Drink liquid protein between meals for hunger. Protein bars are acceptable, however, make sure theyare not high in carbohydrates. For a list of acceptable supplements, please see the administrative resources associate. For band patients, protein bars are recommended. Vitamins Only use Bariatric specific vitamins. A current list can be provided to you at your request. Exercise Would you like to maintain your weight loss? EXERCISE! Expect weight plateaus, more so now than ever. You can't lose 1-2 pounds per week for the rest of your life. Weight loss can be expected up to 2 years. After 2 years, if you want to continue to lose weight it will take more diligence. As you cardiovasuclar health improves, cross training will help you through any plateaus you may incur. Behavior Modification Visit the list of behaviors that helped contribute to your morbid obesity. Assess yourself or visitwith a friend on a regular basis to assure that the bad habits are not returning to your daily lives. Continue weighing weekly. Do you realize how your previous behaviors affected your weight? They can still return. Watch out for cross addiction--trading one addictive behavior (eating and food) for another addictive behavior (alcohol, shopping, gambling). Support groups have their place. Utilize the support that is available to you. General Medical Don't skip appointments! Patients that do not follow up generally have less weight loss and more complications and more difficulty with weight maintenance. Labs are now done yearly. Contact our office 3 weeks prior to your appointment if you wish to do them at home. Weight regain happens! Any more than 10% is not normal. Don't let yourself gain 25 pounds before coming in to see us. You do not have to wait an entire year to make an appointment. Vomiting is not normal. If you cannot attribute vomiting to something that you have done, please notify our office. For females, control is strongly recommended for the first 18 months after surgery. Ulcer Prevention Ulcer medications are recommended, not required now. DO NOT SMOKE. If your return to smoking, notify our office immediately. Smoking causes ulcers! Blood Pressure Medication If you consistently find yourself getting light headed when you go from a laying positions to a sitting position OR from a sitting position to a standing position, contact your primary care physicianfor a medication adjustment. Psychiatric Medication If you do not feel well controlled on your current medication regimen, please call your primary care physician or psychiatrist. Depression after weight loss surgery is not uncommon even if you have never had problems with it inthe past. If you are experiencing problems, please contact someone for assistance. Follow-up For a Colt-en-Y divided gastric bypass/Adjustable gastric band patients, vertical sleeve gastrectomy or revision, your next appointment will be in 1 year. Please have your labs drawn 2 weeks prior [facility] annual appointment. documented in this encounter Progress Notes * Jina Zuniga APRN-CNP - 04/25/2025 1:30 PM CDT Annual Bariatric Surgery Follow up Date of Surgery: 11/01/2020 Sleeve Gastrectomy (Cory ) 07/16/2024 ROBOTIC ASSISTED LAPAROSCOPIC HIATAL HERNIA REPAIR ( Cory ) Weight at Initial Surgery: 272 lbs Todays weight : 188 Total weight loss: 84 lbs IBW: 160 EBW : 112 lbs % EBW loss : 75 % CC Sanjana Carlos is here today for their annual postoperative follow up visit. Patient reports that overall he is doing well Patient is happy with their weight loss and the surgery She is currently on zepbound weekly through her PCP Patient is doing a food journal Patient reports that she is eating: Meal frequency: 3 meals per day - 60-80 gm of protein per day Portion size: small Meal quality: higher protein Snack frequency: occasional Hydration: water Exercise frequency: limited due to neck and back pain Patient is taking the recommended daily bariatric MVI, calcium citrate Patient denies any reflux and is continued on PPI daily Patient denies any difficulty swallowing , nausea, vomiting or abdominal pain Patient is moving her bowels, having constipation and taking stool softeners , miralax Patient has been taken off metformin for PCOS She is continued on aldactone for PCOS She is continued on thyroid medication Patient is continued on depression Review of systems as above, the rest of the systems were negative. BP 130/74 Pulse 88 Temp 96.9 ??F (36.1 ??C) (Temporal) Ht 1.676 m (5' 6) Wt 85.3 kg (188 lb) SpO2 96% BMI (Calculated): 30.36 Medications[1] Past Medical History[2] Physical Exam: General: Awake, alert, oriented to person,place and time. In no distress Neck: Supple, no JVD Abdomen: Soft, nontender, Extremities: No LE edema Skin : warm and dry Psych : mood is good Assessment / Plan: S/P 11/01/2020 Sleeve Gastrectomy (Cory ) Morbid Obesity - patient is down 75 % of EBW - we discussed to assist with continued weight loss 1. Food journal 2. Exercise journal: Exercise: to include light weights 3-5 times /wk for 15- 30 min/day 3. Weigh weekly and record, call the office with and weight gain >10 % - Medication : on zepbound 15 mg weekly through her PCP GERD: continued on PPI - she has tried to wean off medication and had some increase symptoms Diet: Continue with 80-100 gms of protein, 64 oz fluid daily Continue to follow a high protein, low carb, sugar diet Start a food journal when you feel you are off track or if you notice any weight gain Eat slowly, taking 30 minutes to finish a meal Drink liquid protein between meals for hunger Follow dietary restrictions Support Groups: Encouraged to attend Vitamins: Recommend a bariatric multivitamin daily - Ca citrate with D 7569-2873 mg daily in 3 divided doses, - we discussed risks of vitamin deficiency following bariatric surgery and the importance of compliance Labs : Will be checked today, orders placed - sleeve : Vitamin B1, B12 and vitamin D - recommend checking annually. Follow up: In 1 year with routine labs or sooner if needed Counseling included : Dietary education / exercise education / behavior modification Jina Zuniga APRN-JIGGER MACHINE OPERATOR [1] Current Outpatient Medications Medication Ascorbic Acid (VITAMIN C PO) azithromycin (Zithromax) 250 MG tablet CALCIUM CITRATE PO celecoxib (CeleBREX) 200 MG capsule cetirizine (ZYRTEC) 10 MG tablet Cyanocobalamin (VITAMIN B-12 PO) estradiol (Estrace) 2 MG tablet fluconazole (Diflucan) 150 MG tablet levothyroxine (SYNTHROID) 125 MCG tablet MAGNESIUM PO Multiple Vitamins-Minerals (HAIR SKIN & NAILS PO) omeprazole (PRILOSEC) 20 MG capsule spironolactone (ALDACTONE) 50 MG tablet venlafaxine XR 24hr (EFFEXOR XR) 150 MG capsule Zepbound 12.5 MG/0.5ML injection Zinc 30 MG No current facility-administered medications for this visit. [2] Past Medical History: Diagnosis Date Anxiety Depression GERD (gastroesophageal reflux disease) Heart valve regurgitation Hypothyroid PCOS (polycystic ovarian syndrome) PONV (postoperative nausea and vomiting) Cosigned by Danny Rya DO at 04/25/2025 3:46 PM CDT documented in this encounter Plan of Treatment Upcoming Encounters Date Type Department Care Team (Late st Contact Info) Description 04/25/2026 1:00 PM CDT Office Visit [facility] Services [id number] [place] [address] [address] [place] [address] Jina Zuniga APRN-CNP [id number] [place] [address] Scheduled Orders Name Type Priority Associated Diagnoses Orde r Schedule VITAMIN B1 Lab Routine Morbid obesity (HCC) Bariatric surgery status Vitamin deficiency Vitamin D deficiency Ordered: 04/25/2025 VITAMIN B12 Lab Routine Morbid obesity (HCC) Bariatric surgery status Vitamin deficiency Vitamin D deficiency Ordered: 04/25/2025 VITAMIN D 25-HYDROXY Lab Routine Morbid obesity (HCC) Bariatric surgery status Vitamin deficiency Vitamin D deficiency Ordered: 04/25/2025 documented as of this encounter Visit Diagnoses Diagnosis Morbid obesity (HCC)- Primary Morbid obesity Bariatric surgery status Vitamin deficiency Unspecified vitamin deficiency Vitamin D deficiency documented in this encounter Care Teams Courtesy Car Driver Relationship Specialty Start Date End Date Bossman Bullock MD [address] [place] [address] [address] [place] [address] PCP - General Internal Medicine 05/10/24 documented as of this encounter
--- NOTE | ~2025-04-26 | MM_ITS ---
EXAMINATION: MM screening juanito BI w gael HISTORY: Screening TECHNIQUE: Craniocaudal and mediolateral oblique 3-D tomosynthesis images were obtained and synthetic 2-D images were generated. CAD analysis was submitted and interpreted. COMPARISON: 06/18/2022 BREAST PARENCHYMAL COMPOSITION: The breasts are heterogeneously dense, which may obscure small masses. FINDINGS: There is no evidence of suspicious mass, calcification, or architectural distortion to suggest malignancy. There has been no suspicious interval change. IMPRESSION: 1. No mammographic evidence of malignancy. Recommend routine screening mammography in one year. BI-RADS Category 2: Benign finding(s) Reviewed, dictated and finalized at location Q. IMPRESSION: 1. No mammographic evidence of malignancy. Recommend routine screening mammogra phy in one year. BI-RADS Category 2: Benign finding(s)
--- OUTSIDE RECORDS SUMMARY | 2025-04-26 17:34 | XMS_ITS | Patient Health Record ---
Author Organization [facility] ([address]) Address [address] [place] [address] Care Team Providers Care Web Master Name Role Phone Bossman Bullock Primary Care Provider Unavailvelia e Ursula Mayes Unavailable [phone] Allergies No Known Allergies Reason For Referral No Information Medications Medication SIG (Take, Route, Frequency, Duration) Notes Start Date End Date Status Multivitamin - 1 tab(s) orally once a day Active Calcium *Please review and pick correct strength-formula tion from [employer] options. If intended option is not shown, discontinue and re-order from Quick Search* Active Aldactone 50 MG 1 tab(s) orally daily Active Estradiol 2 MG 1 tab(s) orally once a day Active METHYLPREDNISOLONE DOSE PACK 4 mg as directed po daily; Duration: 6 days 10/15/2023 Active NASONEX 50 MCG/INH [...] Oral Daily; Duration: 6 days 09/29/2023 Active METHYLPREDNISOLONE 4 mg as directed Oral Daily; Duration: 6 days 09/29/2023 Active Levothyroxine Sodium 125 MCG 1 tab(s) orally once a day Active ALDACTONE 50 mg 1 tab(s) orally daily Active Hyoscyamine Sulfate 0.125 MG 1 tab(s) sublingually every 4 hours Active Famotidine 20 MG 1 tab(s) orally 2 times a day; Duration: 30 day(s) Active WEGOVY (2.4 MG DOSE) 2.4 MG/0.75 ML (2.4 MG DOSE) DIRECTED SUBCUTANEOUSLY ONCE A WEEK *Please review for potential replacement for e-prescription and drug interaction check* Active CETIRIZINE HYDROCHLORIDE 10 mg 1 tab(s) orally twice per day; Duration: 0 days Active CALCIUM Active MULTIVITAMIN Multiple Vitamins 1 tab(s) orally once a day Active FAMOTIDINE 20 mg 1 tab(s) orally 2 times a day; Duration: 30 day(s) Active HYOSCYAMINE 0.125 mg 1 tab(s) sublingually every 4 hours Active VENLAFAXINE 150 mg 1 cap(s) orally once a day Active LEVOTHYROXINE 125 mcg (0.125 mg) 1 tab(s) orally once a day Active ESTRADIOL 2 mg 1 tab(s) orally once a day Active methylPREDNISolone 4 MG as directed po daily; Duration: 6 days 10/15/2023 Active Immunizations Vaccine Route [...] Status Risk Notes Problem Chronic allergic conjunctivitis (73273453) Other chronic allergic conjunctivitis (H10.45) Active confirmed Problem Allergic rhinitis caused by pollen (disorder) (31313371) Allergic rhinitis due to pollen (J30.1) Active confirmed Problem Allergic rhinitis (50440078) Other allergic rhinitis (J30.89) Active confirmed Problem Contact dermatitis caused by cosmetics (53690119) Allergic contact dermatitis due to cosmetics (L23.2) Active confirmed Plan Of Treatment No Information Insurance Providers Payer Name Payer Address Payer Phone Subscriber Number Group Number Insured Name Patient Relationship to Insured Coverage Start Date Coverage End Date [employer] [address] [place] [address] [id number] I [id number] Sanjana Carlos Self - patient is the insured Medical (General) History Medical History History ICD Code Hypothyroidism (acquired) 244.9 Polycystic ovaries 256.4 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
--- OUTSIDE RECORDS SUMMARY | 2025-04-26 17:34 | XMS_ITS | Clinical Summary ---
Author Organization [facility] [employer] Address [address] [place] [address] Care Team Providers Care Banquet Director Name Role Phone Bossman Bullock MD Primary Care Provider + [phone] Source Comments [facility] [employer],non-owned Affiliates and Associated Physician Practices is amultiple site organization consisting of ambulatory clinics and hospital sitesin [place], [place], [place] and [place]. This disclosure is being madepursuant to the Care Everywhere program and may not contain all information available regarding this patient. Last updated 18.[facility] [employer] Allergies No known active allergies Medications * [...] every 7 days Friday 4 Active Multiple Vitamins-[place] als (HAIR SKIN & NAILS PO) Take [...] Encounters Date Type Department Care Team Description 04/25/2025 1:30 PM CDT Office Visit [facility] Management Services [address] [place] [address], [place] [id number] Jina Zuniga, DORENE-IVONNE Morbid obesity (HCC) (Primary Dx); Bariatric surgery status; Vitamin deficiency; Vitamin D deficiency from Last 3 Months Immunizations Immunization Administration [...] and heating? Not hard at all 07/16/2024 [facility] [place] [facility]at [facility] - Occupational Stress [...] any time in the past 12 m [facility], were you homeless or living in a [facility] (including now)? No 07/16/2024 Comments No Sex and Gender Information Value Date Recorded Sex Assigned at Female 09/24/2020 9:35 AM CDT Legal Sex Female 6:20 AM EXECUTIVE DIRECTOR OF MARKETING Gender Identity Female 09/24/2020 9:35 AM CDT Sexual Orientation Straight 09/24/2020 9: 35 AM CDT Last Filed Vital Signs Vital Sign Reading Time Taken Comments Blood Pressure 130/74 04/25/2025 1:20 PM CDT Pulse 88 04/25/2025 1:20 PM CDT Temperature 36.1 C (96.9 F) 04/25/2025 1:20 PM CDT Respiratory Rate 18 07/17/2024 7:51 AM EXECUTIVE DIRECTOR OF MARKETING Oxygen Saturation 96% 04/25/2025 1:20 PM CDT Inhaled Oxygen Concentration - - Weight 85.3 kg (188 lb) 04/25/2025 1:20 PM CDT Height 167.6 cm (5' 6) 04/25/2025 1:20 PM CDT Body Mass Index 30.34 04/25/2025 1:20 PM CDT Plan of Treatment Upcoming Encounters Date Type Department Care Team (Late st Contact Info) Description 04/25/2026 1:00 PM CDT Office Visit [facility] [address] [facility], [address] [place], [place] [id number] Jina Zuniga, DECK SPECIALIST-CAREER DEVELOPMENT COORDINATOR/TEACHER [address] [facility] [address] [place] [address] Health Maintenance Due Date Last [...] of 3 - 19+ 3-dose series) 09/27/1990 PNEUMOCOCCAL VACCINE 50+ (1 of 1 - PCV) 09/27/2021 ZOSTER VACCINE (1 of 2) 09/27/2021 DEPRESSION SCREENING 07/14/2024 COVID-19 VACCINE (3 - 2024- season) 2025 05/11/2021, 09/15/2020 INFLUENZA VACCINE (#1) 2025 1, 04/04/2020, 04/08/2019, Additional history exists LIPID TESTING 05/06/2027 05/06/2022, 12/28/2019 SCREENING FOR DIABETES 07/17/2027 5, 07/02/2024, 11/02/2020, Additional history exists HIB VACCINE Aged Out [...] (CALCIUM TOTAL) AM Draw 07/17/2024 4:09 AM [facility] Hiatal hernia from Last 3 Months or Most Recently Relevant to Health Maintenance Results * (ABNORMAL) BASIC METABOLIC PANEL (CALCIUM TOTAL) (07/17/2024 4:09 AM [facility]) Pathologist [facility] Glucose 101(H) 70 - 99 mg/dL 07/17/2024 4:47 AM [facility] Sodium 136 136 - 145 mmol/L 07/17/2024 4:47 AM [facility] Potassium 4.2 3.5 - 5.1 mmol/L 07/17/2024 4:47 AM [facility] Chloride 108(H) 98 - 107 mmol/L 07/17/2024 4:47 AM [facility] CO2 23 22 - 29 mmol/L 07/17/2024 4:47 AM [facility] Calcium 8.5 8.4 - 10.4 mg/dL 07/17/2024 4:47 AM [facility] Anion Gap 5(L) 6 - 16 mmol/L 07/17/2024 4:47 AM [facility] BUN 9 7 - 26 mg/dL 07/17/2024 4:47 AM [facility] Creatinine 0.65 0.57 - 1.11 mg/dL 07/17/2024 4:47 AM [facility] eGFR by CKD-EPI >90 >=90 mL/min/1.7 3 m2 07/17/2024 4:47 AM [facility] Blood BLOOD SPECIMEN / Unknown Venipuncture / Unknown 07/17/2024 4:09 AM EXECUTIVE DIRECTOR OF MARKETING 07/17/2024 4:20 AM [facility] Danny Ray DO LAB - CHEMISTRY ORDERABLES Final Result [facility] [address] [place] [address] from Last 3 Months or Most Recently Relevant to Health Maintenance Insurance [employer] Advance Directives * Full Code (Latest Code Status on File) Date Activated Date Inactivated Comments 07/16/2024 9:43 AM 07/17/2024 3:28 PM * Full Code Date Activated Date Inactivated Comments 11/01/2020 10:27 AM 11/02/2020 6:56 PM Care Teams Banquet Director Relationship Specialty Start Date End Date Bossman Bullock MD [address] [address] PCP - General Internal Medicine 05/10/24
--- OUTSIDE RECORDS SUMMARY | 2025-04-26 17:35 | XMS_ITS | Clinical Summary ---
Author Organization [facility] [address] Address [address] [place] [address] Care Team Providers Care Spray Rig Operator Name Role Phone Bossman Bullock MD [...] 1 tablet (125 mcg total) by mouth mail messenger before breakfast 0 Active celecoxib (CeleBREX) 200 [...] ANGIOGRAPHY AND WITH OR WITHOUT LEFT VENTRICULOGRAM [id number]; Surgeon: Sai George MD; [facility]; Service: Cardiovascular; Laterality: N/A; CARDIAC CATHETERIZATION 09/09/2024 N/A Procedure: ULTRASOUND GUIDANCE FOR VASCULAR ACCESS S&I [id number]; Surgeon: Sai George MD; Location: [facility]; Service: Cardiovascular; Laterality: N/A; AORTOGRAM 09/09/2024 Groin Procedure: AORTOGRAM; Surgeon: Sai George MD; Location: [facility]; Service: Cardiovascular;; Medical History Medical History Date [...] on file Legal Sex Female 11:41 PM DRIVER WHEELCHAIR Gender Identity Not on file Sexual Orientation Not on file Obstetrics History Last Filed Vital Signs Vital Sign Reading Time Taken Comments Blood Pressure 112/59 09/09/2024 12:25 PM DRIVER WHEELCHAIR Pulse 77 09/09/2024 12:30 PM DRIVER WHEELCHAIR Temperature 36.6 C (97.8 F) 09/09/2024 6:48 AM DRIVER WHEELCHAIR Respiratory Rate 16 09/09/2024 6:48 AM DRIVER WHEELCHAIR Oxygen Saturation 98% 09/09/2024 12:30 PM DRIVER WHEELCHAIR Inhaled Oxygen Concentration - - Weight 97.1 kg (214 lb) 09/09/2024 6:48 AM DRIVER WHEELCHAIR Height 167.6 cm (5' 6) 09/09/2024 6:48 AM DRIVER WHEELCHAIR Body Mass Index 34.54 09/09/2024 6:48 AM DRIVER WHEELCHAIR Plan of Treatment Health Maintenance Due Date Last Done Comments Breast Cancer Screening-Mammogram 1971 Colon Cancer Screening-Colonoscopy 1971 Depression Screening 1971 Hepatitis C Screening 1971 DTaP/Tdap/Td Vaccine (1 - Tdap) 09/27/1982 Hepatitis B Screening 09/27/1989 Regular Well Visit/Exam 18-64 09/27/1989 Zoster Vaccine (1 of 2) 09/27/2021 Influenza Vaccine (#1) 2025 9, 04/29/2018, 04/17/2017, Additional history exists Pneumococcal vaccine <65 Aged Out No longer eligible based on patient's age to complete this topic Insurance [place] [id number] [place] [id number] Advance Directives For more information, please contact: [phone] Documents on File Type Date Recorded Patient Hot Walker Expl anation ADVANCE DIRECTIVE 09/09/2024 7:13 AM Power of Soiled Linen Distributor-Medical Care Teams Spray Rig Operator Relationship Specialty Start Date End Date Bossman Bullock MD [address] [place] [address] PCP - General Emergency Medicine 05/06/22
--- OUTSIDE RECORDS SUMMARY | 2025-04-26 17:35 | XMS_ITS | Encounter Summary ---
Author Organization [facility] Address [address] [address] Care Team Providers Care Molder Closed Molds Name Role Phone Dylan Torrez DO Primary Care Provider Bossman Bullock MD Primary Care Provide r Encounter Details Date Type Department Care Team (Late st Contact Info) Description 07/04/2016 Orders Only [facility] ProviderIsra MD [address] [place] [id number] Social History Tobacco Use Types Packs/Day Years Used Date Smoking Tobacco: Never Assessed Comments Unknown Sex and Gender Information Value Date Recorded Sex Assigned at Not on file Legal Sex Female 11:41 PM [employer] Gender Identity Not on file Sexual Orientation [...] on filedocumented in this encounter Care Teams Molder Closed Molds Relationship Specialty Start Date End Date Dylan Torrez DO PCP - General 05/20/16 10/10/16 Bossman Bullock MD [address] [place] [address] PCP - General Emergency Medicine 05/06/22 documented as of this encounter
== END 2025-04-26 16:04 | disposition home or self-care (01) ==
LOC: ANHFOHIMG 16:21
PROVIDERS: Visit Provider Obstetrics & Gynecology
DX: Z12.31 Encounter for screening mammogram for malignant neoplasm of breast (principal)
CPT/HCPCS: 77063; 77067